=== PATIENT | male | born 1960 | race Caucasian/White ===

== ENCOUNTER 2018-12-28 09:06 | Inpatient (IN) ==
[2018-12-28] MEDS ORDERED: ASPIRIN PO ONE (09:13)
[2018-12-28] MEDS ORDERED: DUONEB (A & A) INH ONE (09:21)
--- NOTE | 2018-12-28 09:44 | Diag Imaging Result Doc PS360 ---
EXAM: CHEST-2 VIEWS - 12/28/2018 HISTORY: sob hemoptysis TECHNIQUE: Chest two views COMPARISON: None. FINDINGS: Heart size is normal. There is infiltrate at the right lower lobe. There is a small right pleural effusion. There is fullness at the right hilum. Left lung appears clear. IMPRESSION: Right lower lobe infiltrate suspicious for pneumonia. Small right pleural effusion. Right hilar fullness which may relate to enlarged lymph nodes or other mass lesion. Correlation with CT thorax, or follow-up radiographs after treatment, is recommended. Electronically signed by Phill Yang 12/28/2018 9:42 AM
[2018-12-28 09:50] LABS: BASO# 0.02 X1000 (0.0-0.2); BASO% 0.2 % (0.0-0.8); EOS% 1.2 % (0.0-10.0); HEMOGLOBIN 15.5 g/dL (14.0-18.0); IMM GRAN# 0.01 X1000 (0.0-0.04); IMM GRAN% 0.1 % (0.0-0.5); LYMPH# 0.92 X1000 (1.2-3.4); LYMPH% 10.7 % (20.5-51.1); MCH 30.2 PG (27-31); MCHC 32.3 g/dL (33-37); MCV 93.6 FL (81-99); MONO# 1.19 X1000 (0.11-0.59); MONO% 13.8 % (1.7-9.3); MPV 9.8 FL (7.4-10.4); NEUT# 6.37 X1000 (1.4-6.5); PLT 232 X1000 (130-400); RBC 5.13 XMIL (4.7-6.1); RDW 13.8 % (11.5-14.5); WBC 8.61 X1000 (4.8-10.8)
[2018-12-28 10:09] LABS: INR 1.04; PROTIME 14.1 Seconds (11.0-16.0); PTT 32.6 Seconds (22.3-41.8)
--- NOTE | 2018-12-28 10:09 | PROVIDER DOCUMENTATION ---
This chart was entered by Brunilda Buitrago Scribe, acting as scribe for Melissa Thorne MD. HPI-Respiratory General - General Chief Complaint: Shortness of Breath Stated Complaint: SOB/COUGHING UP BLOOD Time Seen by Provider: 12/28/18 09:16 Source: patient Allergies/Adverse Reactions: Patient Allergies Allergy/AdvReac Type Severity Reaction Status Date / Time No Known Allergies Allergy Verified 12/28/18 09:20 Home Medications: Home Medication List Medication Instructions Recorded Confirmed Last Taken Type NK [No Home Medications] 12/28/18 12/28/18 Unknown History - History of Present Illness-Resp Nature of Presenting Problem: 58 yowm presents to the ed with c/o sob, productive cough, chills with abd and back pain. pt sts sx began 1 month prior but worsen 4 days ago. pt sts quit smoking 3 weeks ago. pt on exam is nontoxic in appearance and can speak in complete sentences. Quality of Pain: reports: none Severity in ED: reports: mild Onset/Duration: reports: other (1 month) Timing: reports: intermittent, getting worse Cough Quality/Degree: reports: mild, productive cough, blood streaked sputum Episode Frequency: occasional episodes Current Respiratory Medication Therapy: Initiated see nurses note Associated Symptoms: reports: cough, fever/chills (chills but unsure of fever), shortness of breath, wheezing. denies: chest pain/soreness Similar Symptoms Previously?: Yes Recently seen or treated by another doctor?: No Review of Systems - Adult - REVIEW OF SYSTEMS - ADULT Constitutional: reports: see HPI, chills Eyes: reports: no symptoms reported Ears, Nose, Mouth & Throat: reports: no symptoms reported Cardiovascular: reports: see HPI, edema. denies: chest pain, palpitations Respiratory: reports: see HPI, cough, dyspnea on exertion, shortness of breath, wheezing Gastrointestinal: reports: see HPI, abdominal pain. denies: diarrhea, nausea, vomiting Genitourinary: reports: no symptoms reported Musculoskeletal: reports: see HPI, back pain. denies: neck pain Integumentary: reports: no symptoms reported Neurological: denies: dizziness/vertigo, headache/migraines Psychiatric: reports: no symptoms reported Endocrine: reports: no symptoms reported Hematologic/Lymphatic: reports: no symptoms reported Allergic/Immunologic: reports: no symptoms reported All Other Systems: Reviewed and Negative Past History - Adult - PAST MEDICAL HISTORY-ADULT Review of Records: reports: Nursing Assessment Review, Medications Reviewed, Social history reviewed & non-contributory. Major Childhood Illnesses: reports: denies history Cardiovascular: reports: denies history Respiratory: reports: denies history Gastrointestinal: reports: pancreatitis Genitourinary: reports: denies history Musculoskeletal: reports: denies history Hand Dominance: Right Handed Neurological: reports: denies history Psychiatric: reports: denies history Endocrine/Immune: reports: denies history Other Conditions: reports: denies history - PRIOR SURGERIES/PROCEDURES Surgical/Procedure History: reports: reviewed, not pertinent - IMMUNIZATION STATUS Childhood Immunizations: See Nurse Assessment Flu Vaccine: See Nurse Assessment - FAMILY HISTORY Family History: reviewed, not pertinent - SOCIAL HISTORY Smoking: quit less than 1 year Substance Use: denies Alcohol Use Frequency: never Living Situation: family Physical Exam-General - PHYSICAL EXAM-ADULT Initial Vital Signs Reviewed: Yes - CONSTITUTIONAL General Appearance: appears well, alert, mild distress, obese - EYES Eyes: PERRL/EOMI, pink conjunctivae - HEAD, EARS, NOSE, MOUTH & THROAT HENMT: moist mucous membranes, normal ENT inspection - NECK Neck: full range of motion, supple, normal inspection - RESPIRATORY Respiratory: chest non-tender, decreased breath sounds, wheezing - CARDIOVASCULAR Cardiovascular: normal peripheral pulses, regular rate, rhythm - CHEST (BREASTS) Chest/Breast: deferred - GASTROINTESTINAL (ABDOMEN) Abdominal Exam: normal bowel sounds, non tender, soft - GENITOURINARY Male Genitalia: deferred Rectal Exam: deferred Hemoccult Exam: deferred - LYMPHATIC Lymphatic: no adenopathy - MUSCULOSKELETAL Back Exam: normal inspection, no CVA tenderness, no vertebral tenderness Extremity: normal range of motion, normal gait, normal capillary refill, pelvis stable, swelling (1+ BLE edema) - SKIN Integumentary: normal color, normal turgor, warm/dry - NEUROLOGIC Neurologic: grossly normal - PSYCHIATRIC Psych/Mental Status: normal mood/affect, normal thought content, normal thought process, oriented x 3 Progress - PLAN OF CARE/RESULTS Result Diagrams: 12/28/18 09:42 12/28/18 09:42 - REASSESSMENT Reassessment #1 Time Reassessed: 13:03 (dr hero lemons) Status: unchanged Reassessment #2 Time Reassessed: 14:48 (cough has became worse ) Status: worsening Reassessment #3 Time Reassessed: 14:59 (pt HR 186 and now pt is new onset afib with rvr. er dr and dr blount hospitalist is at bedside) Status: worsening Reassessment #4 Time Reassessed: 16:01 Status: improving (on cardixem drip, HR well controlled.) - EKG 1 Time of EKG reading by physician:: 09:16 EKG Read and Signed by:: Melissa Thorne EKG Interpretation (*Must complete 3 of following elements*): Normal Rate: 75 Rhythm: nsr [place]: normal QRS: normal MT Interval: normal ST Wave: normal 2 Time of EKG reading by physician:: 14:58 EKG Read and Signed by:: Melissa Thorne EKG Interpretation (*Must complete 3 of following elements*): Abnormal Rate: 149 Rhythm: new onset afib with rvr w/ premature ventricular conducted complexes [place]: normal QRS: normal MT Interval: normal ST Wave: normal Prior EKG Comparison: changes noted (new onset afib with rvr) - XRAY 1 XRAY: Bilateral XRAY Study: Chest Impression: See EMR Report (EXAM: CHEST-2 VIEWS - 12/28/2018 HISTORY: sob hemoptysis TECHNIQUE: Chest two views COMPARISON: None. FINDINGS: Heart size is normal. There is infiltrate at the right lower lobe. There is a small right pleural effusion. There is fullness at the right hilum. Left lung appears clear. IMPRESSION: Right lower lobe infiltrate suspicious for pneumonia. Small right pleural effusion. Right hilar fullness which may relate to enlarged lymph nodes or other mass lesion. Correlation with CT thorax, or follow-up radiographs after treatment, is recommended. Electronically signed by Phill Yang 12/28/2018 9:42 AM 12/28/18 0942 Interpreting Physician: Phill Yang MD Dictated Date/Time: 12/28/18 0937 cc: Melissa Thorne MD; Wojciech Ann MD) - CT/MRI 1 CT Study: Angiogram Impression: See EMR Report (EXAM: CT ANGIOGRM PULMONARY ARTERIES 12/28/2018 HISTORY: SOB, ELEVATED D-DIMER TECHNIQUE: This exam was performed using automated exposure control, adjustment of mA or kV according to patient size, and/or use of iterative reconstruction technique. COMMENT: 3-D MIPS were performed. There are no previous studies available for comparison. There is a fairly large right pleural fluid collection. There are no pulmonary arterial filling defects. The aorta is not distended and there is no evidence of dissection. There is a fairly hilar mass in the right lower lobe with obstructi on of the right lower lobe bronchi and attenuation of the middle lobe bronchus. There is some narrowing of the distal bronchus intermedius which appears to be encased in tumor. There is a small amount of pleural fluid on the left. There is obstruction of the left inferior pulmonary vein. The right main pulmonary artery is encased in tumor. There is aorticopulmonary window and right paratracheal ad enopathy. There is apparent periaortic adenopathy in the infrarenal region on the left and there is some retrocrural adenopathy particularly on the right. The adrenal glands are not enlarged. There is a celiac node on the left measuring over 18 mm. There are granulomata in the spleen. There are degenerative changes in the thoracic spine particularly caudally. There are old fractures of the left third, fourth, and fifth ribs. No evidence of acute bony abnormality is present. There is also consolidation of the costophrenic sulcus region of the right lower lobe laterally. There are patchy groundglass opacities throughout the right lower lobe. There is fluid in the right major fissure. 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 Pleural effusions, possibly malignant on the right. Mediastinal and retroperitoneal adenopathy as described above. No evidence of pulmonary emboli. Electronically signed by Taco Garsia 12/28/2018 12:52 PM 12/28/18 1252 Interpreting Physician: Taco Garsia MD Dictated Date/Time: 12/28/18 1244 cc: Melissa Thorne MD; Wojciech Ann MD) - CONSULTS/PCP/HOSPITALIST Notification #1 *Consult/PCP/Hospitalist*: hospiatlsit dr blount Time Discussed: 13:24 (pt will be admitted and then transfered to [facility] for pulmonology) Consult Disposition: Admit Departure - Departure Date of Disposition Decision: 12/28/18 Time of Disposition Decision: 13:34 DIAGNOSIS: Pleural effusion, Lung mass, Mediastinal lymphadenopathy, LAD (lymphadenopathy), retroperitoneal, Atrial fibrillation with RVR Dyspnea Qualifiers: Dyspnea type: unspecified Qualified Code(s): R06.00 - Dyspnea, unspecified Disposition: ADMITTED INPATIENT 09 Certified Medical Emergency: Emergent Condition: Stable - Critical Care Note This patient required my direct & personal management of CC.: Yes Total Time (mins): 38 Critical Care Statement: This patient required my direct personal management to treat or rule out processes, the absence of which, could potentiallly result in sudden, clinically significant life or limb threatening deterioration. Attestation - Physician/ REKHA Attestation Patient care was provided by Advanced Practice Provider:: No The physician spent face to face time with patient:: Yes Advanced Practice Provider documentation review:: Supervising physician onsite and consulted in the evaluation and care of this patient. The physician did have a face to face encounter with the patient. This chart was documented by the indicated scribe, (Brunilda Buitrago Scribe) and accurately reflects the services I performed and decisions made by me, Melissa Thorne MD, as attested by the provider's signature.
[2018-12-28 10:15] LABS: AGAP 9; ALBUMIN 3.9 g/dL (3.5-5.0); ALKALINE PHOSPHATASE 82 U/L (32-122); BUN 10 mg/dL (8-22); CALCIUM 9.3 mg/dL (8.8-10.2); CHLORIDE 98 mmol/L (98-107); CK PROFILE 70 U/L (24-204); COSMO 269; CREATININE 0.7 mg/dL (0.7-1.2); ESTIMATED GFR > 60; GLUCOSE 94 mg/dL (70-104); GOT 16 U/L (10-34); GPT 16 U/L (10-44); POTASSIUM 4.4 mmol/L (3.5-5.1); SODIUM 135 mmol/L (136-145); TCO2 29 mmol/L (25-35); TOTAL PROTEIN 6.7 g/dL (6.3-8.3)
[2018-12-28] MEDS ORDERED: ZITHROMAX 500 MG/NS 500 MG/250 ML IVPB IV ONE (10:28)
[2018-12-28] MEDS ORDERED: ROCEPHIN 1 GM in NS 50 ML IV ONE (10:28)
--- NOTE | 2018-12-28 11:24 | EKG Report ---
Test Performed on : 12/28/2018 09:16:40 AM Test Reason : sob chest tightness Blood Pressure : / mmHG Vent. Rate : 075 BPM Atrial Rate : 075 BPM P-R Int : 168 ms QRS Dur : 082 ms QT Int : 378 ms P-R-T Axes : 062 035 040 degrees QTc Int : 422 ms Normal sinus rhythm. Normal ECG No previous ECGs available Unconfirmed Result
--- NOTE | 2018-12-28 12:55 | Diag Imaging Result Doc PS360 ---
EXAM: CT ANGIOGRM PULMONARY ARTERIES 12/28/2018 HISTORY: SOB, ELEVATED D-DIMER TECHNIQUE: This exam was performed using automated exposure control, adjustment of mA or kV according to patient size, and/or use of iterative reconstruction technique. COMMENT: 3-D MIPS were performed. There are no previous studies available for comparison. There is a fairly large right pleural fluid collection. There are no pulmonary arterial filling defects. The aorta is not distended and there is no evidence of dissection. There is a fairly hilar mass in the right lower lobe with obstruction of the right lower lobe bronchi and attenuation of the middle lobe bronchus. There is some narrowing of the distal bronchus intermedius which appears to be encased in tumor. There is a small amount of pleural fluid on the left. There is obstruction of the left inferior pulmonary vein. The right main pulmonary artery is encased in tumor. There is aorticopulmonary window and right paratracheal adenopathy. There is apparent periaortic adenopathy in the infrarenal region on the left and there is some retrocrural adenopathy particularly on the right. The adrenal glands are not enlarged. There is a celiac node on the left measuring over 18 mm. There are granulomata in the spleen. There are degenerative changes in the thoracic spine particularly caudally. There are old fractures of the left third, fourth, and fifth ribs. No evidence of acute bony abnormality is present. There is also consolidation of the costophrenic sulcus region of the right lower lobe laterally. There are patchy groundglass opacities throughout the right lower lobe. There is fluid in the right major fissure. 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 Pleural effusions, possibly malignant on the right. Mediastinal and retroperitoneal adenopathy as described above. No evidence of pulmonary emboli. Electronically signed by Taco Garsia 12/28/2018 12:52 PM
[2018-12-28] MEDS ORDERED: CARDIZEM ONE (14:57)
[2018-12-28] MEDS ORDERED: NS 1,000 ML ONE (14:57)
[2018-12-28] MEDS ORDERED: CARDIZEM IV ONE ×3 (15:01→15:20)
[2018-12-28] MEDS ORDERED: NS 1,000 ML IV ONE (15:05)
[2018-12-28] MEDS ORDERED: ZOFRAN IV PRN (15:14)
[2018-12-28] MEDS ORDERED: CARDIZEM 125 MG/D5W 125 MG/125 ML IVPB IV SCH (15:30)
--- NOTE | 2018-12-28 16:14 | EKG Report ---
Test Performed on : 12/28/2018 3:09:38 PM Test Reason : heart rhythm change Blood Pressure : / mmHG Vent. Rate : 111 BPM Atrial Rate : 113 BPM P-R Int : 000 ms QRS Dur : 078 ms QT Int : 320 ms P-R-T Axes : 000 034 043 degrees QTc Int : 435 ms Atrial fibrillation. with rapid ventricular response. with premature ventricular or aberrantly conduc noel complexes. Abnormal ECG When compared with ECG of 28-DEC-2018 14:58, (Unconfirmed) No significant change was found Unconfirmed Result
--- NOTE | 2018-12-28 16:14 | EKG Report ---
Test Performed on : 12/28/2018 2:58:42 PM Test Reason : tachycardia Blood Pressure : / mmHG Vent. Rate : 149 BPM Atrial Rate : 149 BPM P-R Int : 000 ms QRS Dur : 070 ms QT Int : 314 ms P-R-T Axes : 000 036 040 degrees QTc Int : 494 ms Atrial fibrillation. with rapid ventricular response. with premature ventricular or aberrantly conduc noel complexes. Abnormal ECG When compared with ECG of 28-DEC-2018 09:16, (Unconfirmed) Atrial fibrillation. has replaced Sinus rhythm. Vent. rate has increased BY 74 BPM Unconfirmed Result
[2018-12-28] MEDS ORDERED: DUONEB (A & A) INH PRN (16:44)
[2018-12-28] MEDS: ZOSYN 3.375 GM in NS 50 ML IV SCH ×2 (17:30→23:00)
--- NOTE | 2018-12-28 18:43 | ECHO REPORT ---
ORDER DATE: 12/28/2018 REQUESTING PHYSICIAN: Hospitalist. INDICATION: Atrial fibrillation with rapid response, evaluate LV function. M-MODE MEASUREMENTS: Left ventricle end diastole: 3.9. Left ventricle end systole: 2.8. Posterior wall: 1.5. Interventricular septum: 1.4. Left atrium: 4.5. SUMMARY OF 2-DIMENSIONAL IMAGIN. The study is very limited. The patient appears to be in atrial fibrillation with rapid response. There is no pericardial effusion. 2. Left ventricular function is probably normal, estimated roughly at 60% to 65%. 3. The aortic valve is probably normal. 4. The mitral valve does not show any evidence of abnormality. 5. The pulmonic valve is visualized suboptimally. 6. The tricuspid valve is also suboptimally visualized. In summary, this echocardiographic study is limited. The global ejection fraction appears to be normal. I do not see evidence of a pericardial effusion. The aortic and mitral valves appear to be grossly within normal range; however, Doppler study was not carried out to further define the valves. RECOMMENDATIONS: This study needs to be repeated once the patient is stabilized, and get a full echo if one has not been done before. cc: MD Kerry Rey CRNP Gregory S. Cheatham, MD
[2018-12-28] MEDS: DUONEB (A & A) INH SCH ×2 (19:37→23:34)
[2018-12-28] MEDS: ZYVOX PO SCH ×2 (19:57→23:00)
--- NOTE | 2018-12-28 21:05 | HISTORY AND PHYSICAL ---
CHIEF COMPLAINT: Shortness of breath, hemoptysis. HISTORY OF PRESENT ILLNESS: This is a 58-year-old gentleman, with a prior history of pancreatitis, who presents to the emergency room complaining of shortness of breath, a productive cough, intermittent chills with upper abdominal and upper back pain. He states that symptoms began about a month ago. He quit smoking. At that time, he was smoking regularly. He did state his last cigarette was 3 weeks ago. Over the last 2 weeks, he has began to have some blood streaked sputum. Over the last 4 days, symptoms have become progressively worse, prompting his coming to the ER for evaluation. He denies any syncope or dizziness, any chest pain. PAST MEDICAL HISTORY: Pancreatitis. PAST SURGICAL HISTORY: Denies. SOCIAL HISTORY: He smoked a pack a day up until 3 weeks ago. He denies any alcohol or illicit drug use. ALLERGIES: No known drug allergies. HOME MEDICATIONS: None. REVIEW OF SYSTEMS: Discussed with the patient with pertinent positives stated in the HPI. He denied any syncope, dizziness, chest pain, or palpitations, any nausea vomiting, diarrhea, constipation, any black or bloody vomitus or stools, any hematuria, dysuria, frequency, urgency. PHYSICAL EXAMINATION: VITAL SIGNS: Blood pressure is 130/83 with a heart rate of 73, respirations 18, temperature 98 degrees, with room air saturations 96%. EYES: Pupils are equal, round, react to light. EOMs are intact. Sclerae are anicteric. HEAD: Normocephalic, atraumatic. ENT: Mucous membranes are moist. NECK: Supple, with trachea midline. CARDIOVASCULAR: Regular rate and rhythm. S1 and S2 are appreciated. He does have bilateral lower extremity edema from about midthigh down. Calves are nontender bilateral with peripheral pulses palpable x4 extremities. PULMONARY: Breath sounds are decreased throughout, with scattered inspiratory and expiratory wheezes. Chest rises and falls symmetrically with respiration. Chest wall is nontender to palpation. GASTROINTESTINAL: Abdomen is large, soft, nontender, and nondistended, with bowel sounds in all 4 quadrants. GENITOURINARY: He has no CVA nor suprapubic tenderness. NEUROLOGIC: He is alert and oriented x3. SKIN: Warm and dry. LABS: WBC is 8.6 with hemoglobin 15.5, hematocrit 48, and platelets of 232,000. INR is 1.04 with a D-dimer of 1.39. Sodium 135, potassium 4.4, BUN 10, creatinine 0.7 with a glucose of 94, total bilirubin is 1.4. Troponin is 0.037. Blood cultures are pending. Chest x-ray revealed right lower lobe infiltrate suspicious for pneumonia. There is a small right pleural effusion. There is fullness at the hilum. Left lung appears clear. CTA pulmonary arteries revealed probable bronchogenic carcinoma centrally in the right lower lobe. There is a hilar mass in the right lower lobe with obstruction of the right lower lobe bronchi and attenuation of the middle lobe bronchus. There is narrowing of the distal bronchus intermedius which appears to be encased in tumor. There is a small amount of pleural fluid on the left. There is obstruction of the left inferior pulmonary vein. The right main pulmonary artery is encased in tumor. There is aortopulmonary window and right paratracheal adenopathy. There is consolidation in the region of the right lower lobe laterally, with patchy ground-glass opacities throughout the right lower lobe. ASSESSMENT: 1. Right lower lobe pneumonia. 2. Lung mass with mediastinal and retroperitoneal lymphadenopathy. 3. Bilateral pleural effusions. 4. Dyspnea. 5. Hemoptysis. 6. Morbid obesity. 7. Atrial fibrillation with rapid ventricular rate. PLAN: 1. The patient will be admitted to ICU at [facility]. 2. He will be placed on telemetry. 3. Will give supplemental oxygen as needed. 4. He was given Cardizem boluses in the emergency room. Cardizem drip per protocol. 5. Dr. Pereyra has been consulted. 6. hold anticoagulation as the patient has had hemoptysis. 7. echocardiogram, limited at this time due to the patient's heart rate. 8. Blood cultures have been obtained. 9. antibiotics 10. DuoNebs q.4 hours with q.2 hours p.r.n. 11. Pulmonology consult Plan was discussed with Dr. Zaragoza. Further treatments pending hospital course. Dictated by JESSENIA Muñoz for Wm Zaragoza MD cc: JESSENIA Muñoz MD [facility]
[2018-12-28] MEDS ORDERED: TYLENOL PO PRN (21:31)
--- NOTE | 2018-12-29 01:59 | HISTORY AND PHYSICAL ---
ADDENDUM: Patient seen and examined by myself. Full note dictated and discussed with nurse practitioner. Patient notes he has been feeling bad for the past couple weeks. Having some occasional shortness of breath. Notes that yesterday he started coughing up blood. Today it continued and therefore came to the ER. Unfortunately, CT is abnormal and demonstrates which certainly may be a bronchogenic carcinoma. We are going to transfer him to [facility], ask Pulmonology for evaluation. cc: Wm Zaragoza MD
[2018-12-29] MEDS: DUONEB (A & A) INH SCH ×6 (03:14→23:19)
[2018-12-29] MEDS: ZOSYN 3.375 GM in NS 50 ML IV SCH ×4 (04:43→22:41)
[2018-12-29 07:28] LABS: AGAP 17; ALB/GLOB RATIO 1.4; ALBUMIN 3.4 g/dL (3.5-5.0); ALKALINE PHOSPHATASE 78 U/L (32-122); BUN 12 mg/dL (8-22); CALCIUM 9.4 mg/dL (8.8-10.2); CHLORIDE 96 mmol/L (98-107); COSMO 271; CREATININE 0.7 mg/dL (0.7-1.2); ESTIMATED GFR > 60; GLUCOSE 114 mg/dL (70-104); GOT 17 U/L (10-34); GPT 17 U/L (10-44); POTASSIUM 4.4 mmol/L (3.5-5.1); SODIUM 135 mmol/L (136-145); TCO2 22 mmol/L (25-35); TOTAL BILIRUBIN 1.44 mg/dL (0.20-1.00); TOTAL PROTEIN 5.8 g/dL (6.3-8.3)
[2018-12-29] MEDS: CARDIZEM PO SCH ×3 (08:20→20:47)
[2018-12-29] MEDS: ZYVOX PO SCH ×2 (08:20→20:47)
[2018-12-29 08:45] LABS: BASO# 0.02 X1000 (0.0-0.2); BASO% 0.1 % (0.0-0.8); EOS# 0.11 X1000 (0.0-0.7); EOS% 0.8 % (0.0-10.0); HEMATOCRIT 47.3 % (42.0-52.0); HEMOGLOBIN 15.5 g/dL (14.0-18.0); IMM GRAN# 0.03 X1000 (0.0-0.04); IMM GRAN% 0.2 % (0.0-0.5); LYMPH% 8.8 % (20.5-51.1); MCH 30.5 PG (27-31); MCHC 32.8 g/dL (33-37); MCV 93.1 FL (81-99); MONO# 1.45 X1000 (0.11-0.59); MONO% 10.6 % (1.7-9.3); MPV 9.9 FL (7.4-10.4); NEUT# 10.83 X1000 (1.4-6.5); NEUT% 79.5 % (42.2-75.2); PLT 243 X1000 (130-400); RBC 5.08 XMIL (4.7-6.1); RDW 13.8 % (11.5-14.5); WBC 13.64 X1000 (4.8-10.8)
--- NOTE | 2018-12-29 10:01 | PROGRESS NOTE ---
DATE: 12/29/2018 SUBJECTIVE: Patient reports feeling fine. Mild shortness of breath at rest, continues to have productive cough. Denies any fever or chills. OBJECTIVE: Vital Signs: Temperature 98.3 degrees, heart rate 64, respiratory rate 20, blood pressure 143/69, O2 saturation 92% L nasal. General: This is a chronically ill-appearing, 58- year-old male, lying in bed, in no acute distress. Cardiovascular: S1, S2 heard. No murmurs, gallops, or rubs. Regular rate and rhythm. Respiratory: Wheezing all over both pulmonary kebede. Patient is not using any accessory muscles or having work of breathing. Abdomen: Soft, nontender to palpation. Bowel sounds present. No organomegaly. Extremities: No clubbing, cyanosis, or edema. Peripheral pulses present in both legs. Neurological: Patient is alert and oriented x3. Moves 4 extremities. LABORATORY DATA: CBC still pending at time of my dictation. BMP shows creatinine 0.7, sodium 135, total bilirubin 144. CT pulmonary artery probable bronchogenic carcinoma centrally in the right lower lobe with hilar mass in the right lower lobe with obstruction of the right lower lobe bronchi. ASSESSMENT AND PLAN: 1. Postobstructive pneumonia. 2. Lung mass with mediastinal and retroperitoneal lymphadenopathy. 3. Bilateral pleural effusion. 4. Atrial fibrillation with rapid ventricular response. PLAN: The patient was transferred from [facility] because of hemoptysis. Patient has long history of smoking. He just quit a few weeks ago. He was found to have a postobstructive pneumonia with lung mass. He was transferred over here for further evaluation. We have consulted Pulmonary today. Also we have consulted Oncology as well. For COPD exacerbation we will provide DuoNeb every 4 hours as scheduled. We will continue with Zyvox and Zosyn for postobstructive pneumonia. Also patient has developed a new onset atrial fibrillation with rapid ventricular response. In that regard, he has been started on Cardizem drip but that medication has been stopped at 8 p.m. I think that has been treated because of the pneumonia. In any case, to just keep his heart rate controlled, we will start Cardizem 30 mg p.o. q.6 hours. I am going to order an echocardiogram. We are not going to order any anticoagulation because this patient is having already hemoptysis from this lung cancer and his risk of bleeding is high. I think because this patient is off of Cardizem drip, I think this patient can be moved to the [facility]. cc: MD Wm Hurtado MD
--- NOTE | 2018-12-29 10:58 | Diag Imaging Result Doc PS360 ---
EXAM: US ABDOMEN-COMPLETE INDICATION: r/o liver mets COMPARISON: None. FINDINGS: There are several shadowing stones in the gallbladder lumen measuring up to 2.8 cm. There is no evidence of gallbladder wall thickening or pericholecystic fluid. The common bile duct is normal in diameter. Sonographic Roberts's sign was reported to be negative. The liver is mildly prominent measuring up to 19 cm in length. The hepatic echotexture appears normal. No discrete hepatic mass is identified. Portal venous flow is hepatopetal. The pancreas is partially obscured. The visualized portion is unremarkable. The aorta is partially obscured. The visualized portion of the aorta and IVC are grossly unremarkable. The spleen is unremarkable. The kidneys are grossly unremarkable. IMPRESSION: 1.Cholelithiasis. 2.Mildly prominent liver but no discrete hepatic mass is identified sonographically. Electronically signed by Job Adrian 12/29/2018 10:56 AM
--- NOTE | 2018-12-29 19:27 | HEMO/ONC CONSULTATION ---
DATE: 12/29/2018 REASON FOR CONSULTATION: Lung mass. HISTORY OF PRESENT ILLNESS: This is a 58-year-old gentleman with a prior history of pancreatitis who presented to the emergency room on with complaints of shortness of breath, productive cough, intermittent chills and upper abdominal and back pain. His symptoms have been going on for about a month. He has a history of smoking. He has noted some blood in his sputum. For the last 4 days, his symptoms have become worse. He denies syncope, dizziness, chest pain. PAST MEDICAL HISTORY: Pancreatitis. PAST SURGICAL HISTORY: Denies. SOCIAL HISTORY: He smoked 1 pack a day up until approximately a month ago. Denies alcohol or illicit drug use. ALLERGIES: No known drug allergies. HOME MEDICATIONS: He denies. REVIEW OF SYSTEMS: Pertinent positives are as stated in the HPI. PHYSICAL EXAMINATION: Vital Signs: Temperature 100, pulse rate 75, respiratory rate 16, blood pressure 135/92, O2 saturation 94% on nasal cannula at 2 L. General: This is a chronically-ill- appearing male in no acute distress. HEENT: Sclerae are anicteric. PERRLA. Oral mucosa is pink and moist. Cardiovascular: Normal S1, S2. No murmurs, gallops, or rubs noted. Regular rate and rhythm. Respiratory: The patient has upper rhonchi. Wheezing heard throughout. No use of accessory muscles. Normal respiratory effort. Gastrointestinal.: Abdomen is soft, nontender, nondistended, protuberant. Bowel sounds are present. Extremities: No edema noted. Neurological: Awake, alert, and oriented x3. No focal motor deficits noted. LABORATORY: WBCs 13.64, hemoglobin 15.5, hematocrit 47.3, platelet count 343,000. ANC 10.83. Total bilirubin 1.44 and total protein 5.8. CEA is 1.7. Abdominal ultrasound - Impression: (1)Cholelithiasis. (2) Mildly prominent liver, but no discrete hepatic mass is identified. Chest x-ray revealed right lower lobe infiltrate suspicious for pneumonia., small right pleural effusion, fullness at the hilum. Left lung appears clear. CTA: Lung mass with mediastinal and retroperitoneal adenopathy. ASSESSMENT: 1. Right lower lobe pneumonia. 2. Lung mass with mediastinal and retroperitoneal lymphadenopathy. 3. Bilateral small pleural effusions. 4. Dyspnea. 5. Hemoptysis. 6. Morbid obesity. PLAN: Pulmonology has been consulted. Patient will need tissue diagnosis. We will continue to follow along and monitor the patient. We will add an LDH to the labs and follow up accordingly. It is noted that the CEA is 1.7. He will need outpatient PET scan. Dictated by JESSENIA Werner for Nilay Pereyra MD cc: MD Wm Weber MD [facility]
--- NOTE | 2018-12-29 23:11 | PULMONOLOGY PROGRESS NOTE ---
DATE: 12/29/2018 REQUESTING PHYSICIAN: Dr. Conn. REASON FOR CONSULTATION: Hemoptysis and lung mass. HISTORY OF PRESENT ILLNESS: Mr. Bishop is a 58-year-old male with a greater than 40 pack-year history for tobacco (nonsmoker x3 weeks) who developed a cough with intermittent bloody sputum approximately 3 weeks ago. The patient has had ongoing shortness of breath. The patient presented to the emergency room and underwent a pulmonary angiogram, which revealed a right hilar mass extending into the right lower lobe with narrowing of the middle lobe bronchus. There is a small pleural effusion. There is significant paratracheal, aortopulmonary, and abdominal adenopathy. Pulmonary consultation was requested. PAST MEDICAL HISTORY/PROBLEM LIST: 1. History of pancreatitis. 2. Morbid obesity with a BMI greater than 40. 3. Extensive tobacco use with a history of nicotine addiction. 4. History of gastric ulcer disease. SOCIAL HISTORY: Recent discontinuation of tobacco use as per above. Denies significant alcohol use. FAMILY HISTORY: Notable for a Father who from heart disease at the age of 55. Mother at age 53 with a diagnosis of brain cancer. REVIEW OF SYSTEMS: Notable for shortness of breath which has been progressive over the last several months, but more severe over the last few weeks, hemoptysis. PHYSICAL EXAMINATION: General: Reveals an obese, white male, resting comfortably and in no distress. Vital signs: BP 126/59, heart rate 82, respiratory rate 20, oxygen saturation 97% on 3 L per nasal cannula. HEENT: Pupils are equal and reactive. Oropharynx is clear. Neck: Supple. Chest: Reveals diminished breath sounds right base. Cardiac: S1, S2. Abdomen: Obese and soft. Extremities: Reveal trace. LABORATORIES: Sodium 135, potassium 4.4, chloride 98, bicarbonate 29, BUN 10, creatinine 0.7. CEA level is normal at 1.7. White blood count 13.6, hemoglobin 15.5, platelet count 243,000. IMPRESSION: A 58-year-old with 1. Lung mass. 2. Extensive mediastinal and abdominal adenopathy. 3. Acute hypoxemic respiratory failure. 4. Pleural effusions. 5. Morbid obesity. 6. Tobacco use. DISCUSSION: A 58-year-old with problems outlined above. Presentation is most consistent with bronchogenic carcinoma. With his current presentation, which includes obesity, hypoxemic respiratory failure, and suggestion of metastatic disease, he will not likely be a surgical candidate. He does need a tissue diagnosis. PLAN: Anticipate bronchoscopy on Tuesday. cc: MD Wm Mckeon MD
[2018-12-30] MEDS: CARDIZEM PO SCH ×4 (01:35→20:14)
[2018-12-30] MEDS: DUONEB (A & A) INH SCH ×6 (03:33→23:26)
[2018-12-30] MEDS: ZOSYN 3.375 GM in NS 50 ML IV SCH ×4 (04:25→23:57)
[2018-12-30 06:52] LABS: BASO# 0.02 X1000 (0.0-0.2); BASO% 0.2 % (0.0-0.8); EOS# 0.12 X1000 (0.0-0.7); EOS% 0.9 % (0.0-10.0); HEMATOCRIT 44.2 % (42.0-52.0); HEMOGLOBIN 14.5 g/dL (14.0-18.0); IMM GRAN# 0.05 X1000 (0.0-0.04); IMM GRAN% 0.4 % (0.0-0.5); LYMPH# 0.91 X1000 (1.2-3.4); LYMPH% 7.2 % (20.5-51.1); MCH 30.5 PG (27-31); MCHC 32.8 g/dL (33-37); MCV 93.1 FL (81-99); MONO# 1.68 X1000 (0.11-0.59); MONO% 13.2 % (1.7-9.3); MPV 9.9 FL (7.4-10.4); NEUT# 9.93 X1000 (1.4-6.5); NEUT% 78.1 % (42.2-75.2); PLT 236 X1000 (130-400); RBC 4.75 XMIL (4.7-6.1); RDW 13.7 % (11.5-14.5); WBC 12.71 X1000 (4.8-10.8)
[2018-12-30 07:11] LABS: AGAP 14; BUN 13 mg/dL (8-22); CALCIUM 9.5 mg/dL (8.8-10.2); CHLORIDE 96 mmol/L (98-107); COSMO 269; CREATININE 0.8 mg/dL (0.7-1.2); ESTIMATED GFR > 60; GLUCOSE 117 mg/dL (70-104); POTASSIUM 4.2 mmol/L (3.5-5.1); SODIUM 134 mmol/L (136-145); TCO2 24 mmol/L (25-35)
[2018-12-30] MEDS: ZYVOX PO SCH ×2 (08:27→20:14)
--- NOTE | 2018-12-30 09:39 | PROGRESS NOTE ---
DATE: 12/30/2018 SUBJECTIVE: The patient reports feeling fine, is still coughing. Shortness of breath is better. Denies any fever or chills. OBJECTIVE: Vital Signs: Temperature 98.8 degrees, heart rate 65, respiratory rate 20, blood pressure 120/71, O2 saturation 99% on 3 L nasal cannula. General: This is a chronically ill- appearing, 58-year-old male, lying in bed, in no acute distress. Cardiovascular: S1, S2 heard. No murmurs, gallops, or rubs. Regular rate and rhythm. Respiratory: Still wheezing noted all over both pulmonary kebede. Patient not using any accessory muscles or having work of breathing. Abdomen: Soft. Nontender to palpation. Bowel sounds present. No organomegaly. Extremities: No clubbing, cyanosis, or edema. Peripheral pulses present in both legs. Neurological: Patient alert and oriented x3. Moves 4 extremities. LABORATORY DATA: Reviewed. ASSESSMENT: 1. Possible obstructive pneumonia. 2. Lung mass with mediastinal and retroperitoneal lymphadenopathy. 3. Bilateral pleural effusion. 4. Atrial fibrillation with rapid ventricular response. PLAN: The patient clinically is stable. Regarding postobstructive pneumonia, his white cell count is almost back to normal. We will continue with Zosyn and Zyvox. The patient continues to have wheezing, so we will continue with DuoNeb every 4 hours scheduled. Regarding this lung mass, Dr. Floyd has evaluated this patient and thinks that this could be most likely bronchogenic carcinoma. In that regard, plan is to do bronchoscopy on Tuesday. At this point, we will continue with the current management. For atrial fibrillation with rapid ventricular response, I think that was triggered by pneumonia and also the lung cancer as well. At this point, he is in sinus rhythm. His heart rate is controlled at less than 100 almost all the time with Cardizem 30 mg p.o. q.6 hours scheduled. At this point, we will continue with the same management. If his heart rhythm persists to be controlled, I think tomorrow we may switch to Cardizem CD 120 mg p.o. daily. In order to complete the staging for lung cancer and to rule out any dissemination of the lung cancer to the abdomen, we will do abdomen and pelvis CT today, we will see what it shows. In the meantime, we will continue to monitor this patient here closely. cc: MD Wm Hurtado MD MTDD
--- NOTE | 2018-12-30 12:06 | Diag Imaging Result Doc PS360 ---
EXAM: CT ABDOMEN/PELVIS W/WO CONTRAS 12/30/2018 HISTORY: lung cancer, r/o mets in abdomen TECHNIQUE: This exam was performed using automated exposure control, adjustment of mA or kV according to patient size, and/or use of iterative reconstruction technique. COMMENT: There is a small pericardial effusion which is larger than on the previous thoracic study of 12/28/2018. There are no previous abdominal studies. There is a right pleural effusion which was present at the time the previous study. There is increased consolidation of the right lower lobe compared to the previous exam. This is presumably due to worsened postobstructive pneumonia. There is also opacification of portions of the inferior right middle lobe which was not the case previously. There is some platelike atelectasis in the left lower lobe. There are granulomata in the spleen. The aorta is not distended. The mesenteric and renal arteries are patent. There is no evidence of hydronephrosis or nephrolithiasis. The gallbladder is not distended. The liver is unremarkable. The adrenal glands are not enlarged. There is adenopathy present in the right retrocrural space where there is a node measuring up to 16 mm in diameter. The kidneys are without evidence of hydronephrosis or mass. There is no discrete mass in the pancreas but the pancreatic head is somewhat prominent measuring 4.8 x 3.4 cm in the axial plane. There is no evidence of bowel obstruction. Pelvis: There is no evidence of free fluid. There is a 16 mm left external iliac node otherwise there is no evidence of significant adenopathy. There are spondylotic changes in the lumbar spine and there is bilateral spondylolysis at L5. There is no evidence of acute bony disease. IMPRESSION: Worsening postobstructive pneumonia in the right lower and middle lobe. Increasing pericardial effusion. Adenopathy as described. Electronically signed by Taco Garsia 12/30/2018 12:04 PM
--- NOTE | 2018-12-30 15:33 | PULMONOLOGY PROGRESS NOTE ---
DATE: 12/30/2018 SUBJECTIVE: The patient is awake and alert. He denies chest pain. His shortness of breath has diminished. OBJECTIVE: HEENT: Pupils are equal and reactive. Oropharynx is clear. Neck: Supple. Chest: Reveals diminished breath sounds, right base. Cardiac Exam: S1, S2. Abdomen: Obese and soft. Extremities: Without edema. IMPRESSION: A 58-year-old with presumptive lung cancer with a large right hilar mass. Anticipate bronchoscopy on Tuesday. PLAN: 1. Nothing by mouth after midnight tomorrow. 2. Anticipate bronchoscopy as outlined above. cc: MD Wm Mckeon MD
[2018-12-31] MEDS: CARDIZEM PO SCH ×4 (02:29→20:10)
[2018-12-31] MEDS: DUONEB (A & A) INH SCH ×6 (03:39→23:28)
[2018-12-31] MEDS: ZOSYN 3.375 GM in NS 50 ML IV SCH ×3 (05:46→17:11)
[2018-12-31 06:30] LABS: BASO# 0.02 X1000 (0.0-0.2); BASO% 0.2 % (0.0-0.8); EOS# 0.21 X1000 (0.0-0.7); EOS% 1.7 % (0.0-10.0); HEMATOCRIT 45.1 % (42.0-52.0); HEMOGLOBIN 14.6 g/dL (14.0-18.0); IMM GRAN# 0.02 X1000 (0.0-0.04); IMM GRAN% 0.2 % (0.0-0.5); LYMPH# 0.85 X1000 (1.2-3.4); LYMPH% 6.9 % (20.5-51.1); MCH 30.2 PG (27-31); MCHC 32.4 g/dL (33-37); MCV 93.4 FL (81-99); MONO# 1.64 X1000 (0.11-0.59); MONO% 13.4 % (1.7-9.3); MPV 9.8 FL (7.4-10.4); NEUT% 77.6 % (42.2-75.2); PLT 266 X1000 (130-400); RBC 4.83 XMIL (4.7-6.1); RDW 13.7 % (11.5-14.5); WBC 12.24 X1000 (4.8-10.8)
[2018-12-31 06:51] LABS: AGAP 13; BUN 12 mg/dL (8-22); CALCIUM 9.8 mg/dL (8.8-10.2); CHLORIDE 97 mmol/L (98-107); COSMO 272; CREATININE 0.8 mg/dL (0.7-1.2); ESTIMATED GFR > 60; GLUCOSE 139 mg/dL (70-104); POTASSIUM 4.1 mmol/L (3.5-5.1); SODIUM 135 mmol/L (136-145); TCO2 25 mmol/L (25-35)
[2018-12-31] MEDS: ZYVOX PO SCH ×3 (07:57→20:10)
--- NOTE | 2018-12-31 09:54 | PROGRESS NOTE ---
DATE: 12/31/2018 SUBJECTIVE: The patient reports continue having cough, not able to mobilize any secretion. Reports walking in the room and getting mild short of breath. Denies any fever or chills. OBJECTIVE: Vital Signs: Temperature 98.2 degrees, heart rate 70, respiratory rate 20, blood pressure 121/64, O2 saturation 96% on 2 L nasal cannula. General: This is a chronically ill- appearing, 58-year-old male, lying in bed, in no acute distress. Cardiovascular: S1, S2 heard. No murmurs, gallops or rubs. Regular rate and rhythm. Respiratory: Still wheezing all over both pulmonary kebede but better in comparing with yesterday. Patient is not using any accessory muscles or having work of breathing. Abdomen: Soft, nontender to palpation. Bowel sounds present. No organomegaly. Extremities: No clubbing, cyanosis, or edema. Peripheral pulses present in both legs. Neurological: Patient is alert oriented x3. Moves 4 extremities. LABORATORY DATA: Reviewed. ASSESSMENT: 1. Post obstructive pneumonia. 2. Lung mass with mediastinal and retroperitoneal lymphadenopathy. 3. Bilateral pleural effusion. 4. Atrial fibrillation with rapid ventricular response. 5. Worsening pericardial effusion. PLAN: This patient, in brief, has been admitted to the hospital for shortness of breath. We found out in the CT angiogram of the chest this lung mass. Pulmonary has evaluated this patient, and they are planning to do a bronchoscopy for biopsy. Oncology has been involved in his care. For post obstructive pneumonia, the patient is receiving Zosyn and Zyvox and also DuoNeb every 4 hours as scheduled. Clinically, this patient is feeling fine. We have ordered a CT of the abdomen and pelvis for staging of this lung cancer and rule out any dissemination of the cancer to the abdomen, and they informed that postobstructive pneumonia is getting worse as well as worsening pericardial effusion. We have done an echocardiogram limited views, and they did not see any major pericardial effusion. In that regard, I prefer to go ahead and consult Cardiology to see if we need to repeat full echocardiogram or not. We will follow recommendations. Also, we will follow recommendations from Pulmonary. Will continue with current management. cc: MD Wm Hurtado MD
--- NOTE | 2018-12-31 14:27 | CONSULTATION ---
DATE OF CONSULTATION: 12/31/2018 IMPRESSION: 1. Consultation requested regarding pericardial effusion. Echocardiography performed this morning shows tiny amount of pericardial effusion with preserved left ventricular systolic function. 2. Atrial arrhythmias while monitored on telemetry. Patient demonstrates sinus rhythm with frequent supraventricular ectopy and occasional runs of atrial tachycardia. He has also had some irregular supraventricular rhythms that are either atrial fibrillation or multifocal atrial tachycardia. Presently he is in sinus rhythm with frequent supraventricular ectopy. 3. Currently admitted with lung mass and extensive mediastinal and abdominal adenopathy after presenting with acute hypoxic respiratory failure with hemoptysis. Patient also has pleural effusions. 4. Morbid obesity. 5. Chronic cigarette use. 6. Possible obstructive sleep apnea. RECOMMENDATIONS: 1. Given that pericardial effusion is tiny, no further cardiovascular intervention regarding this is needed. 2. Continue to monitor rhythm. If patient manifests sustained symptomatic tachyarrhythmias, use of diltiazem versus amiodarone may be considered. 3. Conservative cardiovascular management overall in light of his likely diagnosis of metastatic malignancy. HISTORY: This 58-year-old white male with past history of morbid obesity, chronic cigarette use, peptic ulcer disease and pancreatitis in the past was admitted originally to [facility] with progressive dyspnea and hemoptysis. He had some intermittent chills along with upper abdominal and upper back discomfort. Symptoms had been progressing over about a month and at the outset of the symptoms he discontinued cigarette use. Evaluation has demonstrated pleural effusion and lung mass involving the right lower lobe. Pleural effusions on the right. Patient also had mediastinal and retroperitoneal adenopathy. There is no evidence of pulmonary emboli. He is being treated for possible pneumonia and as he has further evaluation of his lung mass. He had repeat CT scan yesterday which suggested increasing pericardial effusion. Echocardiography just few days ago demonstrated no significant pericardial effusion. The patient had echocardiography this morning which demonstrated tiny pericardial effusion. PAST MEDICAL HISTORY: 1. Pancreatitis. 2. Obesity. 3. Peptic ulcer disease. ALLERGIES: He has no known drug allergies. MEDICATIONS: Prior to admission as listed. SOCIAL HISTORY: He recently stopped smoking about 3 weeks ago. He denies significant alcohol use. FAMILY HISTORY: Positive for coronary disease. REVIEW OF SYSTEMS: Pulmonary: Noteworthy for dyspnea and hemoptysis. Gastrointestinal: Noncontributory beyond history of present illness. Constitutional: Noncontributory beyond history of present illness. Remainder review of systems negative/noncontributory beyond history present illness with 14 total systems reviewed. PHYSICAL EXAMINATION: General: This is a obese middle-aged white male in no distress on supplemental oxygen per nasal cannula. Vital signs: Blood pressure 132/73, heart rate 72, oxygen saturation 97% on nasal cannula oxygen at 2 L/minute. HEENT: Extraocular movements appear intact. Mucous membranes moist. Neck: Supple without jugular venous distention. There are no carotid bruits. Chest: Auscultation of the chest reveals diminished breath sounds in right base. Cardiac: Reveals a regular rate and rhythm without appreciable murmur or gallop. Abdomen: Soft. Bowel sounds are normal. Extremities: Without edema. Neurologic: Reveals him to be alert and fully oriented. Speech is fluent. He moves all 4 extremities equally well. DIAGNOSTIC DATA: Most recent 12 lead EKG obtained 12/29/2018 demonstrates normal sinus rhythm is within normal limits. Review of telemetry demonstrates episodes of brief atrial tachycardia as well as frequent supraventricular ectopy. LABORATORY DATA: Includes a white blood cell count of 12.24, hematocrit 45.1, hemoglobin 14.6, platelet count 266,000. Sodium 135, potassium 4.1, chloride 97, carbon dioxide 25, BUN 12, creatinine 0.8, glucose 139. cc: MD Wm Berman MD
--- NOTE | 2018-12-31 16:13 | EKG Report ---
Test Performed on : 12/31/2018 12:24:58 PM Test Reason : elevated heart rate Blood Pressure : / mmHG Vent. Rate : 109 BPM Atrial Rate : 147 BPM P-R Int : 188 ms QRS Dur : 082 ms QT Int : 326 ms P-R-T Axes : 069 042 032 degrees QTc Int : 439 ms sinus rhythm alternating with atrial fibrillation Abnormal ECG When compared with ECG of 28-DEC-2018 15:09, (Unconfirmed) Sinus rhythm. alternates with Atrial fibrillation. Confirmed by Ambrocio PEARSON, Hari Pizano ([id number]) on 12/31/2018 7:38:37 PM
--- NOTE | 2018-12-31 17:53 | PULMONOLOGY PROGRESS NOTE ---
DATE: 12/31/2018 SUBJECTIVE: The patient is awake and alert. He is without new complaints. OBJECTIVE: Vital Signs: Maximum temperature in the last 24 hours 100.6 degrees, BP 120/61, heart rate 68, respiratory rate 20, oxygen saturation 99% on 2 L per nasal cannula. HEENT: Pupils are equal and reactive. Oropharynx appears clear. Neck is supple. Chest reveals occasional rhonchi bilaterally with significant decreased breath sounds at the right base. Cardiac: S1, S2. Abdomen is obese and soft. Extremities reveal trace to 1+ peripheral edema. LABORATORIES: White blood count 12.24, hemoglobin 14.6, platelet count 266,000. Sodium 135, potassium 4.1, chloride 97, bicarbonate 25, BUN 12, creatinine 0.8. IMPRESSION: A 58-year-old with: 1. Large right hilar mass. 2. Extensive mediastinal adenopathy. 3. Acute hypoxemic respiratory failure. 4. Pleural effusions. PLAN: 1. The patient is scheduled for bronchoscopy tomorrow, pending bronchoscopy lab availability. 2. All questions were discussed and answered. cc: MD Wm Mckeon MD
[2019-01-01] MEDS: ZOSYN 3.375 GM in NS 50 ML IV SCH ×4 (00:56→18:27)
[2019-01-01] MEDS: CARDIZEM PO SCH ×5 (00:57→19:57)
[2019-01-01] MEDS: DUONEB (A & A) INH SCH ×6 (03:33→23:04)
[2019-01-01 06:04] LABS: BASO# 0.03 X1000 (0.0-0.2); BASO% 0.3 % (0.0-0.8); EOS# 0.24 X1000 (0.0-0.7); EOS% 2.2 % (0.0-10.0); HEMOGLOBIN 14.2 g/dL (14.0-18.0); IMM GRAN# 0.02 X1000 (0.0-0.04); IMM GRAN% 0.2 % (0.0-0.5); LYMPH# 0.96 X1000 (1.2-3.4); LYMPH% 8.9 % (20.5-51.1); MCH 30.3 PG (27-31); MCHC 32.3 g/dL (33-37); MCV 93.8 FL (81-99); MONO# 1.15 X1000 (0.11-0.59); MONO% 10.7 % (1.7-9.3); MPV 9.6 FL (7.4-10.4); NEUT# 8.35 X1000 (1.4-6.5); NEUT% 77.7 % (42.2-75.2); PLT 263 X1000 (130-400); RBC 4.69 XMIL (4.7-6.1); RDW 13.8 % (11.5-14.5); WBC 10.75 X1000 (4.8-10.8)
[2019-01-01 06:23] LABS: AGAP 11; BUN 14 mg/dL (8-22); CALCIUM 10.2 mg/dL (8.8-10.2); CHLORIDE 96 mmol/L (98-107); COSMO 267; CREATININE 0.8 mg/dL (0.7-1.2); ESTIMATED GFR > 60; GLUCOSE 105 mg/dL (70-104); POTASSIUM 4.5 mmol/L (3.5-5.1); SODIUM 133 mmol/L (136-145); TCO2 26 mmol/L (25-35)
[2019-01-01] MEDS ORDERED: XYLOCAINE 2% VISCOUS ONE (07:27)
[2019-01-01] MEDS ORDERED: EPINEPHRINE ONE (07:27)
[2019-01-01] MEDS ORDERED: XYLOCAINE 2% ONE (07:27)
[2019-01-01] MEDS ORDERED: SODIUM CHLORIDE 0.9% 20 ML ONE (07:27)
[2019-01-01] MEDS ORDERED: XYLOCAINE-MPF 2% ONE ×2 (08:23→08:43)
[2019-01-01] MEDS ORDERED: DIPRIVAN 1% ONE (08:24)
[2019-01-01] MEDS ORDERED: FENTANYL ONE (08:32)
[2019-01-01] MEDS ORDERED: VERSED ONE (08:41)
--- NOTE | 2019-01-01 08:44 | ECHO REPORT ---
ORDER DATE: 12/31/2018 SUMMARY: 1. Technically difficult study. Study is a limited study to assess for pericardial effusion. 2. Aortic valve is without evidence of structural abnormality. Doppler not performed. Mitral valve and tricuspid valves are without gross structural abnormality. Pulmonic valve not seen. The aortic root is grossly normal in size. 3. Normal left ventricular dimensions suggested on 2-dimensional images. Estimated left ventricular ejection fraction appears to be at least 55%. No obvious wall motion abnormality can be appreciated. Left atrium, right atrium, and right ventricle are grossly normal in size. 4. Very small pericardial effusion is demonstrated. During systole, pericardial separation measures 4 mm at the apex and 3 mm anteriorly. There is no evidence of hemodynamic significance by echocardiography. 5. Inferior vena cava not well demonstrated. cc: MD Wm Berman MD
--- NOTE | 2019-01-01 10:11 | OPERATIVE NOTE ---
PROCEDURE DATE: 01/01/2019 PROCEDURE PERFORMED: Bronchoscopy with washings and endobronchial biopsies. CLINICAL INDICATIONS: A 58-year-old with large right hilar mass and hemoptysis. DESCRIPTION OF PROCEDURE: The patient was identified in the procedure room prior to the procedure. All of his questions were answered. A time-out was performed prior to the procedure. All agreed with the procedure and the patient identifiers. When topical anesthesia and sedation were achieved, bronchoscope was advanced through the right nostril to the level of the vocal cords. There was mild leukoplakia noted on the midportion of the left vocal cord. Video image was obtained. The bronchoscope was advanced through the vocal cords into the trachea. No tracheal lesions were identified. Airways to the left mainstem, left upper lobe lingula and left lower lobe were patent without lesions. Airways to the right upper lobe were patent without lesions. On the medial portion of the bronchus intermedius on entrance into the right middle lobe. There was increased edema of the mucosa with probable tumor involvement. The bronchoscope could not be advanced into the right middle lobe due to airway narrowing and edematous mucosa. The bronchoscope was directed to the right lower lobe. There was increase in secretions and edema, and airway segments to the right lower lobe could not be visualized. Epinephrine was instilled into the basilar segment entrance of the right lower lobe. A biopsy forceps was advanced into this area and immediately met obstruction. Multiple biopsies were taken in a blind fashion as the forceps hit obstruction on entrance into the right lower lobe. Minor bleeding was associated with the biopsies. The patient did have upper airway obstruction with sedation and a jaw advancement maneuver was required for the majority of the case to prevent oxygen desaturation. Otherwise, patient tolerated the procedure without difficulty. IMPRESSION: 1. Abnormal entrance with narrowing and inability to evaluate right middle lobe as per above. 2. Edema with no airway identified to the right lower lobe. Multiple transbronchials performed as outlined above. cc: MD Wm Mckeon MD
[2019-01-01] MEDS: ZYVOX PO SCH ×2 (11:22→20:00)
--- NOTE | 2019-01-01 11:56 | PROGRESS NOTE ---
DATE: 01/01/2019 SUBJECTIVE: The patient has no major complaints. OBJECTIVE: Blood pressure is 128/61, heart rate 66, respiratory rate of 9, temperature 98 degrees, 98% on 2 L. Cardiovascular: Regular rate and rhythm. Pulmonary: Bilateral breath sounds clear to auscultation. GI: Soft, nontender, nondistended. Bowel sounds were positive. Laboratory Data: White count is 10, hemoglobin and hematocrit 14 and 44, platelets 263,000. Basic was normal. PROBLEM LIST: 1. Postobstructive pneumonia. We will continue antibiotics. He is currently on Zyvox and Zosyn, if I remember correctly, and those have been day 5 on those, at least since they were started. May consider them day 4 since they were started late on the . 2. Atrial fibrillation with rapid ventricular response. He is on Cardizem. I think he may be on oral Cardizem. Seems to be controlled so maybe probably start the intravenous Cardizem. Seems to be doing okay. 3. Lung mass with concern over cancer. His bronchoscopy was done today per Dr. Floyd. It does look like multiple biopsies were done so waiting on tissue to decide about treatment. 4. Disposition. Kind of waiting on biopsy results so he may be here another couple days or per the other folks on board, so we will continue to monitor closely. I am not sure if he is needs to be anticoagulated but obviously, we are going to hold all of that while he has recently gotten surgery. We are just waiting on multiple specimens and we will continue to follow. cc: MD Wm Salmeron MD
--- NOTE | 2019-01-01 12:59 | HEMO/ONC PROGRESS NOTE ---
DATE: 01/01/2019 SUBJECTIVE: The patient is back in his room status post bronchoscopy this morning. His is at bedside. He remains NPO. His procedure went well and he is waking up as expected. OBJECTIVE: Vital Signs: Temperature 98.2 degrees, pulse rate 65, respiratory rate 17, blood pressure 129/71, O2 saturation 95% on nasal cannula at 3 L. He is in 0/10 pain. Physical Examination: General: The patient is in no acute distress. HEENT: Sclerae are anicteric. PERRLA. Oral mucosa is moist. Cardiovascular: Normal S1, S2. Heart rate and rhythm regular. Respiratory: Bilateral breath sounds clear to auscultation. Normal respiratory effort. Gastrointestinal: Abdomen is soft, nontender, nondistended. Bowel sounds were positive. Extremities: No lower extremity edema noted. Laboratory: WBCs 10.75, hemoglobin 14.2, hematocrit 44.0, platelet count 263,000. LDH 171. ASSESSMENT: 1. Postobstructive pneumonia. 2. Right lung mass with mediastinal and retroperitoneal lymphadenopathy. 3. Bilateral small pleural effusions. 4. Dyspnea. 5. Hemoptysis. 6. Morbid obesity. PLAN: The patient had a bronchoscopy today with multiple biopsies. We will continue to wait on the results. The patient tolerated his procedure well. We will continue to follow up on patient's labs and await tissue diagnosis. Unfortunately he is uninsured. We will not be able to get a PET scan. Plan for a bone scan. We will continue to follow. Dictated by JESSENIA Werner for Nilay Pereyra MD cc: MD Wm Weber MD MTDD
[2019-01-02] MEDS: ZOSYN 3.375 GM in NS 50 ML IV SCH ×5 (01:20→23:19)
[2019-01-02] MEDS: CARDIZEM PO SCH ×5 (01:20→23:19)
[2019-01-02] MEDS: DUONEB (A & A) INH SCH ×6 (03:07→23:06)
[2019-01-02 05:29] LABS: BASO# 0.03 X1000 (0.0-0.2); BASO% 0.3 % (0.0-0.8); HEMATOCRIT 41.6 % (42.0-52.0); HEMOGLOBIN 13.6 g/dL (14.0-18.0); IMM GRAN# 0.02 X1000 (0.0-0.04); IMM GRAN% 0.2 % (0.0-0.5); LYMPH# 0.95 X1000 (1.2-3.4); LYMPH% 9.5 % (20.5-51.1); MCH 30.6 PG (27-31); MCHC 32.7 g/dL (33-37); MCV 93.7 FL (81-99); MPV 9.6 FL (7.4-10.4); NEUT# 7.42 X1000 (1.4-6.5); PLT 295 X1000 (130-400); RBC 4.44 XMIL (4.7-6.1); RDW 13.7 % (11.5-14.5); WBC 10.02 X1000 (4.8-10.8)
[2019-01-02 05:46] LABS: AGAP 10; BUN 14 mg/dL (8-22); CALCIUM 9.9 mg/dL (8.8-10.2); CHLORIDE 95 mmol/L (98-107); COSMO 264; CREATININE 0.8 mg/dL (0.7-1.2); ESTIMATED GFR > 60; GLUCOSE 118 mg/dL (70-104); POTASSIUM 4.1 mmol/L (3.5-5.1); SODIUM 131 mmol/L (136-145); TCO2 26 mmol/L (25-35)
[2019-01-02] MEDS: ZYVOX PO SCH ×2 (08:29→20:11)
--- NOTE | 2019-01-02 12:54 | Diag Imaging Result Doc PS360 ---
EXAM: BONE SCAN, TOTAL BODY 01/01/2019 HISTORY: evaluate for mets TECHNIQUE: Patient was injected with 29.2 mCi of technetium 99m MDP and the entire body was scanned in the anterior and posterior projection. COMMENT: There are portions of the upper extremities which are not included on the study due to the patient's large body habitus. There is some increased activity posteriorly in the upper cervical spine on the right which may be due to facet arthropathy. There is some costovertebral uptake particularly on the right side on the eighth and ninth ribs. There is costovertebral arthropathy demonstrated on the CT of the chest dated 12/28/2018 at multiple levels. There is some increased activity in the right ankle which may be degenerative or posttraumatic. No foci of abnormal uptake are present which are particularly suggestive of metastatic disease. There are no previous studies available for comparison. IMPRESSION: No definite evidence of metastatic disease. Electronically signed by Taco Garsia 01/02/2019 12:51 PM
--- NOTE | 2019-01-02 18:32 | PROGRESS NOTE ---
DATE: 01/02/2019 SUBJECTIVE: Patient has no major complaints. OBJECTIVE: Blood pressure is 147/62, heart rate of 97, respiratory rate 23, temperature 98.5 degrees, 94% on room air.Cardiovascular: Regular rate and rhythm. Pulmonary: Bilateral breath sounds. Clear to auscultation. GI: Was soft, nontender, nondistended. Bowel sounds are positive. Extremities: No clubbing or cyanosis. Lymphatic: No peripheral edema. Neurological: Nonfocal. LABORATORY DATA: Was unremarkable. White count is 10, hemoglobin and hematocrit 13, 41, platelets 295,000. Sodium 131. cc: Mac Meek MD
--- NOTE | 2019-01-02 18:43 | PROGRESS NOTE ---
DATE: 01/02/2019 SUBJECTIVE: Patient denies chest discomfort or shortness of breath on room air. OBJECTIVE: Blood pressure 147/62, heart rate 97, oxygen saturation 94% on room air. There is no significant jugular venous distention. Auscultation of the chest reveals significant diminished breath sounds in the right base. Few rhonchi appreciated. Cardiac: Reveals a regular rate and rhythm without appreciable murmur or gallop. Extremities: Demonstrate trace edema. LABORATORY DATA: Includes white blood cell count of 10.02, hematocrit 41.6, hemoglobin 13.6, platelet count 295,000. Sodium 131, potassium 4.1, chloride 95, carbon dioxide 26, BUN 14, creatinine 0.8, glucose 118. IMPRESSION: 1. Post obstructive pneumonia and lung mass with right pleural effusion. 2. Tiny pericardial effusion. 3. Atrial arrhythmias. Review of telemetry shows sinus rhythm with frequent supraventricular ectopy and occasional runs of atrial tachycardia. One nonsustained episode appeared to possibly be atrial fibrillation versus multifocal atrial tachycardia. Today patient is in sinus rhythm with frequent supraventricular ectopy. Earlier this morning he was in sinus rhythm with brief episodes of atrial tach. 4. Morbid obesity. 5. Chronic cigarette use. 6. Probable obstructive sleep apnea. RECOMMENDATIONS: 1. Continue Cardizem orally. 2. At this point, anticoagulation does not appear warranted unless persistent atrial fibrillation manifests. 3. I will see patient further on an as needed basis. cc: Tyler Ronquillo MD
--- NOTE | 2019-01-02 21:33 | PULMONOLOGY PROGRESS NOTE ---
DATE: 01/02/2019 SUBJECTIVE: The patient is awake and alert. He is without new complaints. OBJECTIVE: Vital Signs: The patient has been afebrile for the last 24 hours. BP 119/67, heart rate 69, respiratory rate 18, oxygen saturation 95% on 3 L per nasal cannula. HEENT: Pupils are equal and reactive. Oropharynx is clear. Neck: Supple. Chest: Diminished breath sounds, right base. Cardiac: S1, S2. Abdomen: Obese and soft. Extremities: Without edema. LABORATORIES: Microbiology from bronchial washings reveal no growth. Preliminary biopsy report from the right lower lobe is consistent with a nonsmall cell carcinoma of the lung. Final pathology report is pending the results of special stains. IMPRESSION: A 58-year-old with lung cancer which involves the right pulmonary artery, with paratracheal, hilar, and subcarinal adenopathy, and hypoxemic respiratory failure. The patient's radiographic presentation does not suggest that he is a candidate for resection. If he did not have adenopathy, he still would require a pneumonectomy. With his morbid obesity and respiratory failure, he is not a candidate for a pneumonectomy, even if he had N1 disease. Therefore, he will be relegated to chemotherapy and/or radiation. PLAN: 1. Continue oxygen for hypoxemic respiratory failure. 2. Await Oncology's recommendations for treatment. cc: Mina Floyd MD
[2019-01-03] MEDS: CARDIZEM PO SCH ×4 (02:02→20:30)
[2019-01-03] MEDS: DUONEB (A & A) INH SCH ×6 (03:01→23:25)
[2019-01-03] MEDS: ZOSYN 3.375 GM in NS 50 ML IV SCH ×3 (05:12→17:26)
[2019-01-03 05:59] LABS: BASO# 0.04 X1000 (0.0-0.2); BASO% 0.5 % (0.0-0.8); EOS# 0.36 X1000 (0.0-0.7); EOS% 4.2 % (0.0-10.0); HEMATOCRIT 42.3 % (42.0-52.0); HEMOGLOBIN 13.7 g/dL (14.0-18.0); IMM GRAN# 0.03 X1000 (0.0-0.04); IMM GRAN% 0.3 % (0.0-0.5); LYMPH# 0.83 X1000 (1.2-3.4); LYMPH% 9.6 % (20.5-51.1); MCH 30.4 PG (27-31); MCHC 32.4 g/dL (33-37); MONO# 0.98 X1000 (0.11-0.59); MONO% 11.3 % (1.7-9.3); MPV 9.6 FL (7.4-10.4); NEUT# 6.41 X1000 (1.4-6.5); NEUT% 74.1 % (42.2-75.2); PLT 310 X1000 (130-400); RDW 13.7 % (11.5-14.5); WBC 8.65 X1000 (4.8-10.8)
[2019-01-03 06:23] LABS: AGAP 13; BUN 14 mg/dL (8-22); CALCIUM 9.5 mg/dL (8.8-10.2); CHLORIDE 99 mmol/L (98-107); COSMO 277; CREATININE 0.6 mg/dL (0.7-1.2); ESTIMATED GFR > 60; GLUCOSE 107 mg/dL (70-104); POTASSIUM 4.3 mmol/L (3.5-5.1); SODIUM 138 mmol/L (136-145); TCO2 26 mmol/L (25-35)
[2019-01-03] MEDS: ZYVOX PO SCH ×2 (08:33→20:30)
--- NOTE | 2019-01-03 13:15 | PROGRESS NOTE ---
DATE: 01/03/2019 SUBJECTIVE: Patient looks well. No major complaints. OBJECTIVE: Blood pressure 124/61, heart rate 120, respiratory rate 16, temperature 97.3 degrees, and 93% on room air.Cardiovascular: Regular rate and rhythm. Pulmonary: Bilateral breath sounds. Clear to auscultation. GI: Soft. Nontender and nondistended. Bowel sounds are positive. LABORATORY DATA: White count was 8, hemoglobin and hematocrit 13 and 42, and platelets 310,000. PROBLEM LIST: 1. Pneumonia, appears to be stable. We will continue to monitor. The patient is on Zyvox and Zosyn. 2. Atrial fibrillation. He is stable on Cardizem. I guess we are holding on anticoagulation to see with Dr. Ronquillo states, it is not warranted. I do not think his CHADS-VASc score is high enough at this point in any case. 3. Possible lung mass. We are still waiting on pathology and decision per Pulmonary and Oncology for other treatment options. Again, I think he is stable to go to the floor. cc: Mac Meek MD
--- NOTE | 2019-01-03 13:32 | HEMO/ONC PROGRESS NOTE ---
DATE: 01/03/2019 SUBJECTIVE: The patient is sitting up at his bedside eating breakfast this morning. He states he feels about the same, no worse, no better. He denies any complaints this morning. He still has a productive cough with white sputum. He is aware of his preliminary biopsy results at this time. He states he had a good night's sleep, and denies any pain at this time. OBJECTIVE: Vital Signs: Temperature 97.3 degrees, pulse rate 67, respiratory rate 18, blood pressure 112/61, O2 saturation 93% on room air. He is in 0/10 pain. General: The patient is in no acute distress. HEENT: Sclera is anicteric. PERRLA. Oral mucosa is normal. Cardiovascular: S1, S2 normal. Heart rate and rhythm normal. Respiratory: Diminished breath sounds noted on right side, otherwise cleared. Normal respiratory effort Gastrointestinal: Abdomen is protuberant, soft, and nontender. Extremities: No lower extremity edema noted. LABORATORY: WBCs 8.65, hemoglobin 13.7, hematocrit 42.3, and platelet count 310,000. ASSESSMENT: 1. Postobstructive pneumonia. 2. Right lung mass with mediastinal and retroperitoneal lymphadenopathy. 3. Bilateral small pleural effusions. 4. Dyspnea. 5. Hemoptysis. 6. Morbid obesity. PLAN: He continues to await for the final results from the biopsy. According to DR. Floyd, preliminary biopsy report from the right lower lobe is consistent with non-small cell carcinoma of the lung. The patient is not a candidate for pneumonectomy. The patient had a bone scan which showed no evidence of metastatic disease. Abdominal lymph node disease is concerning for metastatic disease. Plan for PET and further management outpatient. Dictated by JESSENIA Werner for Nilay Pereyra MD cc: Nilay Pereyra MD [facility]
[2019-01-04] MEDS: ZOSYN 3.375 GM in NS 50 ML IV SCH ×4 (00:22→18:39)
[2019-01-04] MEDS: CARDIZEM PO SCH ×4 (01:09→21:47)
[2019-01-04] MEDS: DUONEB (A & A) INH SCH ×6 (03:11→23:17)
[2019-01-04 06:39] LABS: BASO# 0.05 X1000 (0.0-0.2); BASO% 0.5 % (0.0-0.8); EOS# 0.44 X1000 (0.0-0.7); EOS% 4.1 % (0.0-10.0); HEMATOCRIT 44.5 % (42.0-52.0); HEMOGLOBIN 14.3 g/dL (14.0-18.0); IMM GRAN# 0.04 X1000 (0.0-0.04); IMM GRAN% 0.4 % (0.0-0.5); LYMPH# 1.04 X1000 (1.2-3.4); LYMPH% 9.8 % (20.5-51.1); MCH 30.2 PG (27-31); MCHC 32.1 g/dL (33-37); MCV 94.1 FL (81-99); MONO# 0.99 X1000 (0.11-0.59); MONO% 9.3 % (1.7-9.3); MPV 9.6 FL (7.4-10.4); NEUT# 8.05 X1000 (1.4-6.5); NEUT% 75.9 % (42.2-75.2); PLT 351 X1000 (130-400); RBC 4.73 XMIL (4.7-6.1); RDW 13.8 % (11.5-14.5); WBC 10.61 X1000 (4.8-10.8)
[2019-01-04 07:21] LABS: AGAP 13; BUN 13 mg/dL (8-22); CALCIUM 9.6 mg/dL (8.8-10.2); CHLORIDE 96 mmol/L (98-107); COSMO 273; CREATININE 0.8 mg/dL (0.7-1.2); ESTIMATED GFR > 60; GLUCOSE 124 mg/dL (70-104); POTASSIUM 4.2 mmol/L (3.5-5.1); SODIUM 136 mmol/L (136-145); TCO2 27 mmol/L (25-35)
--- NOTE | 2019-01-04 07:43 | EKG Report ---
Test Performed on : 01/04/2019 07:36:10 AM Test Reason : abnormal telemetry Blood Pressure : / mmHG Vent. Rate : 063 BPM Atrial Rate : 063 BPM P-R Int : 178 ms QRS Dur : 080 ms QT Int : 410 ms P-R-T Axes : 037 034 024 degrees QTc Int : 419 ms Normal sinus rhythm. Normal ECG When compared with ECG of 04-JAN-2019 03:31, (Unconfirmed) No significant change was found Confirmed by Ambrocio PEARSON, Hari Pizano ([id number]) on 01/04/2019 8:46:10 PM
[2019-01-04] MEDS: ZYVOX PO SCH ×2 (08:01→21:47)
--- NOTE | 2019-01-04 08:10 | EKG Report ---
Test Performed on : 01/04/2019 03:31:08 AM Test Reason : SOB Blood Pressure : / mmHG Vent. Rate : 065 BPM Atrial Rate : 065 BPM P-R Int : 166 ms QRS Dur : 080 ms QT Int : 420 ms P-R-T Axes : 046 045 033 degrees QTc Int : 436 ms Normal sinus rhythm. Normal ECG When compared with ECG of 31-DEC-2018 12:24, PACs and SVT are no longer seen Confirmed by Ambrocio PEARSON, Hari Pizano ([id number]) on 01/04/2019 8:41:41 PM
[2019-01-04] MEDS ORDERED: ZOSYN ONE (12:57)
--- NOTE | 2019-01-04 13:27 | CONSULTATION ---
DATE OF CONSULTATION: 01/04/2019 I have been asked to see Mr. Bishop by our Hospitalist, Dr. Mac Meek. His family physician is Dr. Wojciech Ann. His medical oncologist, Dr. Nilay Pereyra. His supervisor drapery hanging, Dr. Jayme Floyd. HISTORY OF PRESENT ILLNESS: Mr. Dewey Bishop has been diagnosed with non-small cell lung cancer, which is unresectable, and he will need chemotherapy for his treatment and we are asked to evaluate him for port placement. It has been discovered that he has a right lung mass with mediastinal and retroperitoneal lymphadenopathy. He has been hospitalized with postobstructive pneumonia and dyspnea. PAST MEDICAL HISTORY: Pancreatitis. PAST SURGICAL HISTORY: None. SOCIAL HISTORY: He smokes a pack of cigarettes a day up until 3 weeks ago. He does not abuse alcohol. ALLERGIES: No known drug allergies. HOME MEDICATIONS: None. REVIEW OF SYSTEMS: Despite his dyspnea, there is no pertinent positives on a 14-point review of the review of systems. The pertinent positives are listed in the history of present illness. FAMILY HISTORY: Family history was reviewed with the patient and was noncontributory. PHYSICAL EXAMINATION: General: Mr. Bishop is overweight. He is short of breath. He is in no acute distress. Vital signs: His heart rate is 62, blood pressure 128/63, O2 saturation 96%. He is afebrile. HEENT exam: No jaundice, no oral lesions. Satisfactory dentition. No cervical or supraclavicular lymphadenopathy. Heart: His heart has a regular rate. Lungs: Had some expiratory wheezing. He did have some shortness of breath. Abdomen: His abdomen soft, nontender, without palpable mass. No costovertebral tenderness. Rectal: Exam was not performed. Extremities: Does have palpable peripheral pulses. No significant peripheral edema. Neurologic: No focal deficit. IMPRESSION: Right-sided non-small cell lung cancer metastatic unresectable. PLAN: Dr. Pereyra has been consulted from Medical Oncology. I have been asked to see him for access for chemotherapy such as with Port-A-Cath and we can arrange placement of this Port-A-Cath prior to him beginning his treatment with Dr. Pereyra as an outpatient. I have discussed a port with him and the placement of a port while at the bedside today. cc: Lilly Buitrago MD
--- NOTE | 2019-01-04 21:14 | PULMONOLOGY PROGRESS NOTE ---
DATE: 01/04/2019 SUBJECTIVE: The patient is awake, alert, and conversant. He is with no new complaints. OBJECTIVE: Vital Signs: The patient has been afebrile for the last 24 hours. Blood pressure 120/65, heart rate 63, respiratory rate 16, oxygen saturation 95% on room air. HEENT: Pupils are equal and reactive. Oropharynx appears clear. Neck: Is supple. Chest: Reveals decreased breath sounds at the right base. LABORATORIES: Transbronchial biopsies have been finalized and are consistent with squamous cell carcinoma, moderately differentiated. IMPRESSION: 58-year-old with 1. Squamous cell carcinoma encasing the right pulmonary artery with paratracheal, hilar, and subcarinal adenopathy. 2. Hypoxemic respiratory failure. 3. Morbid obesity. PLAN: 1. Agree with plans for Port-A-Cath placement per Dr. Buitrago. 2. Await oncology's final recommendations. cc: Mina Floyd MD
[2019-01-05] MEDS: ZOSYN 3.375 GM in NS 50 ML IV SCH ×3 (00:50→13:52)
[2019-01-05] MEDS: DUONEB (A & A) INH SCH ×3 (02:34→11:15)
[2019-01-05] MEDS: CARDIZEM PO SCH ×3 (03:03→13:52)
--- NOTE | 2019-01-05 04:39 | PROGRESS NOTE ---
DATE: 01/04/2019 SUBJECTIVE: Patient has no major complaints. He is breathing comfortably. OBJECTIVE: Vital signs: Blood pressure was 150/70, heart rate 62, respiratory 16, temperature 98.4 degrees, saturation 96% on room air. Cardiovascular: Regular rate and rhythm. Pulmonary: Bilateral breath sounds clear. Gastrointestinal: Soft, nontender. Bowel sounds are positive. LABORATORY DATA: White count 10, hemoglobin and hematocrit 14 and 44. Electrolytes were okay. PROBLEM LIST: 1. Pneumonia. We will continue Zyvox [*] cancer based on preliminary data, this is most likely lung cancer. He has got squamous cell carcinoma, moderately differentiated. Plan will be for port placement and [*] start outpatient chemotherapy. cc: Mac Meek MD
[2019-01-05] MEDS: ZYVOX PO SCH (08:23)
--- NOTE | 2019-01-05 12:38 | HEMO/ONC PROGRESS NOTE ---
DATE: 01/05/2019 SUBJECTIVE: Mr. Bishop is sitting up in his bed. He is eating breakfast this morning. He states he feels better. His cough is greatly improved. He does not feel as sick as he was. His breathing is normal. He states he had a good night's sleep and denies any pain at this time. OBJECTIVE: Vital Signs: Temperature 99.6 degrees, pulse rate 67, respiratory rate 19, blood pressure 127/69, O2 saturation 94% on room air. He is in 0/10 pain. General: On physical examination, he is an obese male in no acute distress. Cardiovascular: Normal S1, S2. Heart rate and rhythm are normal. Respiratory: Diminished breath sounds on the right side, otherwise they are clear to auscultation. Normal respiratory effort. Gastrointestinal: Abdomen is protuberant, soft, nontender. Extremities: No lower extremity abnormality noted. LABORATORY: No labs drawn today. ASSESSMENT: 1. Postobstructive pneumonia. 2. Right lung mass with mediastinal and retroperitoneal lymphadenopathy. 3. Bilateral small pleural effusions. 4. Dyspnea. 5. Hemoptysis. 6. Morbid obesity. PLAN: The patient has been diagnosed with squamous cell carcinoma of the right lung that is unresectable. He also has mediastinal and retroperitoneal lymphadenopathy. We need to obtain an outpatient PET scan to assess for metastasis. At this time it appears he may have disease metastasis in his lymph nodes, but we are unsure until we can obtain a PET scan. We have requested the patient obtain a port for chemotherapy use. From our standpoint, the patient is ready to be discharged. We will follow up with him in the clinic next week. Dictated by JESSENIA Werner for Nilay Pereyra MD cc: Nilay Pereyra MD
[2019-01-05 15:49] VITALS: BP 130/65
--- NOTE | 2019-01-05 22:08 | DISCHARGE SUMMARY ---
ADMISSION DATE: 12/28/2018 DISCHARGE DATE: 01/05/2019 DISPOSITION: Home. FOLLOWUP: Followup will be with: 1. Dr. Pereyra. 2. Dr. Floyd. 3. Dr. Ronquillo. CONSULTATIONS DURING THIS ADMISSION: 1. Cardiology was initially consulted. Patient was seen by Dr. Ronquillo. 2. Hematology/Oncology was consulted. Patient was seen by Dr. Pereyra. 3. Respiratory was consulted. Patient was seen by Dr. Floyd. INVASIVE PROCEDURES DURING THIS ADMISSION: A bronchoscopy with washing and endobronchial biopsies was done by Dr. Floyd on 01/01/2019. Pathology report from the biopsy showed squamous cell carcinoma moderately differentiated. ADMITTING DIAGNOSES: 1. Right lower lobe pneumonia. 2. Lung mass with mediastinal and retroperitoneal lymphadenopathy. 3. Bilateral pleural effusions. 4. Dyspnea. DIAGNOSES AT TIME OF DISCHARGE: 1. Right lower lobe squamous cell carcinoma. 2. Acute hypoxemic respiratory failure on presentation. Improved. 3. Postobstructive pneumonia. 4. Paroxysmal atrial fibrillation. 5. Chronic tobacco use. 6. Suspected obstructive sleep apnea. DISCHARGE MEDICATIONS: 1. Amoxicillin 1 tablet b.i.d. 2. Zyvox 600 p.o. q.12. 3. Aspirin 325 p.o. daily. 4. Diltiazem 120 mg p.o. daily. PRESENTING COMPLAINT: Shortness of breath, hemoptysis. HISTORY OF PRESENTING COMPLAINT: Mr. Bishop is a 58-year-old, male, with past medical history of some remote pancreatitis, came to the emergency department because of shortness of breath, productive cough, intermittent chills. He said the symptoms have been going on for about a month. Upon presenting, he was evaluated, and imaging studies were done, including a chest x- ray which showed right lower lobe infiltrate suspicious for pneumonia. A CT scan of the lungs did show a probable bronchogenic carcinoma centrally in the right lower lobe and pleural effusion, possibly malignant on the right. Mr. bishop was admitted to the medical floor for continued management. HOSPITAL COURSE: Mr. Bishop was admitted to the medical floor, was started on broad-spectrum IV antibiotics, steroids, and bronchodilation therapy. Pulmonary Medicine was consulted. Patient was seen by Dr. Floyd. A decision was made to do a bronchoscopy, which was successfully done. Results reveal squamous cell carcinoma of the right lung. Other workup was done, which did not seem to reveal any metastatic lesion. Surgery was consulted for port placement. However, this was not done before the patient got discharged. I was able to speak directly with Dr. Pereyra today, and he was okay with Mr. Bishop being discharged if he is medically stable, and he will arrange with surgery on outpatient basis for the port to be placed, and for his other oncological outpatient management. Today, Mr. Bishop vitals, blood pressure is 130/65, pulse of 67, respirations 16, temperature is 98.5 degrees. The patient is saturating between 94 to 96 percent on room air. We think he is in stable condition for discharge. He is going to follow up with all of the other subspecialties that have been involved in his care. Also note that Mr. Bishop had some atrial arrhythmias during the hospital course, some paroxysmal atrial fibrillation. He was started on Cardizem. This morning, his heart rate is better controlled. He has a CHADS Vasc score of 0, so we just put him on aspirin, and he will be followed up with Dr. Ronquillo. All of the discharge instructions have been discussed with Mr. Bishop. Specifically, we stressed the need for him to continue abstinence from tobacco products. TIME SPENT FOR DISCHARGE: 38 minutes. cc: Malvin Aguilar MD
== END 2019-01-05 17:36 | disposition home or self-care (01) | DRG 180 ==
LOC: P.ED 09:06 → SUATTDRO 09:07 → ICU 15:58 → 2N 12-29 16:49 → 4N 01-04 12:23
PROVIDERS: ATTEND Internal Medicine

== ENCOUNTER 2019-02-08 22:38 | Inpatient (IN) ==
--- NOTE | 2019-02-08 23:21 | EKG Report ---
Test Performed on : 02/08/2019 11:00:45 PM Test Reason : SOB Blood Pressure : / mmHG Vent. Rate : 091 BPM Atrial Rate : 091 BPM P-R Int : 148 ms QRS Dur : 076 ms QT Int : 336 ms P-R-T Axes : 054 030 038 degrees QTc Int : 413 ms Sinus rhythm. with marked sinus arrhythmia. with occasional premature ventricular complexes. Otherwise normal ECG When compared with ECG of 31-JAN-2019 21:52, (Unconfirmed) premature ventricular complexes. are now present Unconfirmed Result
[2019-02-08] MEDS ORDERED: DUONEB (A & A) INH ONE (23:52)
[2019-02-08] MEDS ORDERED: SOLU-MEDROL IV ONE (23:55)
--- NOTE | 2019-02-08 23:57 | PROVIDER DOCUMENTATION ---
HPI-General Adult - General Chief Complaint: Shortness of Breath Stated Complaint: SOB, DECREASED URINE OP, (CHEMO TUESDAY) Time Seen by Provider: 02/08/19 23:42 Source: patient, family (sister) Allergies/Adverse Reactions: Patient Allergies Allergy/AdvReac Type Severity Reaction Status Date / Time No Known Allergies Allergy Verified 02/08/19 23:14 Home Medications: Home Medication List Medication Instructions Recorded Confirmed Last Taken Type Diltiazem HCl [Cartia Xt] 120 mg PO DAILY 01/31/19 02/08/19 01/31/19 History Metoclopramide [Reglan] 10 mg PO Q6HR PRN 01/31/19 02/08/19 Unknown History Ondansetron [Zofran] 4 mg PO Q6H PRN PRN 01/31/19 02/08/19 Unknown History Promethazine [Phenergan] 25 mg PO Q6H PRN PRN 01/31/19 02/08/19 Unknown History Vitamin B Complex 1 cap PO DAILY 01/31/19 02/08/19 01/31/19 History Zinc Sulfate 2 cap PO DAILY 01/31/19 02/08/19 01/31/19 History Atorvastatin Calcium [Lipitor] 80 mg PO QPM 02/08/19 02/08/19 Unknown History - History of Present Illness -Gen Adult Nature of Presenting Problems: Patient with a RLL squamous cell ca (just received 1st dose of chemotherapy 3 days ago,followed by Dr. Pereyra), and Paroxysmal Afib recently seen here for AMS with abnormal CT head and was transferred to [place], [facility] today with sob of 4 to 6 hrs duration. He report cough without audible wheezing. He was started on abx by PCP today for fever. Had 1st dose this PM. Sister does not know name of medication. No h/o immobilization Location of Pain/Injury: reports: none Pain Radiation: reports: no radiation Quality of Pain: reports: none Onset/Duration: reports: 4-6 hours ago Context/Activities at Onset: reports: none Modifying Factors: improves with: nothing Associated Symptoms: reports: shortness of breath Review of Systems - Adult - REVIEW OF SYSTEMS - ADULT Constitutional: reports: fever, weight loss Eyes: reports: no symptoms reported Ears, Nose, Mouth & Throat: reports: no symptoms reported Cardiovascular: reports: see HPI Respiratory: reports: see HPI, cough, shortness of breath Gastrointestinal: reports: no symptoms reported Genitourinary: reports: no symptoms reported Musculoskeletal: reports: no symptoms reported Integumentary: reports: no symptoms reported Neurological: reports: no symptoms reported Psychiatric: reports: no symptoms reported Endocrine: reports: no symptoms reported Hematologic/Lymphatic: reports: no symptoms reported Allergic/Immunologic: reports: no symptoms reported Past History - Adult - PAST MEDICAL HISTORY-ADULT Review of Records: reports: Nursing Assessment Review, Medications Reviewed, Social history reviewed & non-contributory. Major Childhood Illnesses: reports: denies history Cardiovascular: reports: A-Fib Respiratory: reports: denies history Gastrointestinal: reports: pancreatitis Genitourinary: reports: denies history Musculoskeletal: reports: denies history Neurological: reports: denies history Psychiatric: reports: denies history Endocrine/Immune: reports: denies history Other Conditions: reports: denies history - PRIOR SURGERIES/PROCEDURES Surgical/Procedure History: reports: reviewed, not pertinent - IMMUNIZATION STATUS Childhood Immunizations: See Nurse Assessment Flu Vaccine: See Nurse Assessment - FAMILY HISTORY Family History: reviewed, not pertinent - SOCIAL HISTORY Smoking: cigarettes (former smoker) Substance Use: denies Alcohol Use Frequency: rarely (denies) Living Situation: family (with sister) Physical Exam-General - PHYSICAL EXAM-ADULT Initial Vital Signs Reviewed: Yes - CONSTITUTIONAL General Appearance: alert, mild distress, moderate distress - EYES Eyes: PERRL/EOMI - HEAD, EARS, NOSE, MOUTH & THROAT HENMT: normocephalic/atraumatic - NECK Neck: non-tender, full range of motion, supple - RESPIRATORY Respiratory: chest non-tender, decreased breath sounds (right lung), wheezing (scanty on the right) - CARDIOVASCULAR Cardiovascular: no edema, no JVD - GASTROINTESTINAL (ABDOMEN) Abdominal Exam: non tender, soft - MUSCULOSKELETAL Back Exam: normal inspection Extremity: normal range of motion, non-tender - SKIN Integumentary: normal color - NEUROLOGIC Neurologic: pillow filler II-XII nml as tested - PSYCHIATRIC Psych/Mental Status: oriented x 3 Progress - PLAN OF CARE/RESULTS Progress/Plan/Lab Results: Vital Signs - 8 hr 02/08/19 22:51 Temperature 98.8 F Pulse Rate 94 H Respiratory Rate 18 Blood Pressure 111/60 O2 Sat by Pulse Oximetry 96 Orders Category Date Time Status EKG [EKG] Stat Ther 02/08/19 22:55 Draft Result Diagrams: 11/01/19 00:20 02/09/19 00:20 - REASSESSMENT Reassessment #1 Time Reassessed: 01:30 Status: improving (slightly improved after duoneb but noted to be coughing. Still decreased air entry and scattered wheezing on the right lung. for repeat albuterol, abx, sputum and blood cx) - CT/MRI 1 CT Study: Thorax (findings c/w postobstructive pneumonia with progressive consolidation of right lung, increasing right pleural effusion) - CONSULTS/PCP/HOSPITALIST Notification #1 *Consult/PCP/Hospitalist*: Dr. Canchola,hospitalist Time Discussed: 02:45 Consult Disposition: Admit - CHANGE OF SHIFT REPORT (ED Provider) 1 Report Given and Care Transferred to:: Dr Morgan at the end of my shift Time of Transfer: 01:56 Items Pending: CT/MRI Results, Physician Consult/Arrival Departure - Departure Date of Disposition Decision: 02/09/19 Time of Disposition Decision: 03:05 DIAGNOSIS: Failure of outpatient treatment, Mediastinal lymphadenopathy, Lung cancer RLL pneumonia Qualifiers: Pneumonia type: due to unspecified organism Qualified Code(s): J18.1 - Lobar pneumonia, unspecified organism Disposition: ADMITTED INPATIENT 09 Certified Medical Emergency: Emergent Condition: Stable Referrals and Follow-Ups: None,PCP [Primary Care Provider] - - Critical Care Note This patient required my direct & personal management of CC.: No Attestation - Physician/ REKHA Attestation Patient care was provided by Advanced Practice Provider:: No The physician spent face to face time with patient:: Yes Advanced Practice Provider documentation review:: Supervising physician onsite and consulted in the evaluation and care of this patient. The physician did have a face to face encounter with the patient.
[2019-02-09 00:46] LABS: BASO# 0.01 X1000 (0.0-0.2); BASO% 0.2 % (0.0-0.8); EOS# 0.03 X1000 (0.0-0.7); EOS% 0.6 % (0.0-10.0); HEMATOCRIT 42.5 % (42.0-52.0); HEMOGLOBIN 13.7 g/dL (14.0-18.0); IMM GRAN# 0.02 X1000 (0.0-0.04); IMM GRAN% 0.4 % (0.0-0.5); LYMPH# 0.43 X1000 (1.2-3.4); LYMPH% 7.9 % (20.5-51.1); MCH 29.1 PG (27-31); MCHC 32.2 g/dL (33-37); MCV 90.2 FL (81-99); MONO# 0.13 X1000 (0.11-0.59); MONO% 2.4 % (1.7-9.3); MPV 9.8 FL (7.4-10.4); NEUT% 88.5 % (42.2-75.2); PLT 222 X1000 (130-400); RBC 4.71 XMIL (4.7-6.1); WBC 5.42 X1000 (4.8-10.8)
[2019-02-09 01:14] LABS: AGAP 13; ALBUMIN 3.2 g/dL (3.5-5.0); ALKALINE PHOSPHATASE 122 U/L (32-122); BUN 15 mg/dL (8-22); CALCIUM 9.4 mg/dL (8.8-10.2); CHLORIDE 95 mmol/L (98-107); CK PROFILE 29 U/L (24-204); COSMO 269; CREATININE 0.8 mg/dL (0.7-1.2); ESTIMATED GFR > 60; GLUCOSE 91 mg/dL (70-104); GOT 45 U/L (10-34); GPT 78 U/L (10-44); POTASSIUM 4.4 mmol/L (3.5-5.1); SODIUM 134 mmol/L (136-145); TCO2 26 mmol/L (25-35); TOTAL BILIRUBIN 0.62 mg/dL (0.20-1.00); TOTAL PROTEIN 6.3 g/dL (6.3-8.3)
[2019-02-09] MEDS ORDERED: VANCOMYCIN 1 GM/NS 1 GM/250 ML IVPB IV ONE (01:23)
[2019-02-09] MEDS ORDERED: ZOSYN 4.5 GM in NS 100 ML IV ONE (01:23)
[2019-02-09] MEDS ORDERED: ALBUTEROL NEB INH ONE (01:24)
[2019-02-09] MEDS ORDERED: NS 1,000 ML IV SCH (04:06)
[2019-02-09] MEDS: LEVAQUIN 750 MG/D5W 750 MG/150 ML IVPB IV SCH (04:44)
[2019-02-09] MEDS: DUONEB (A & A) INH SCH ×6 (05:24→23:12)
[2019-02-09] MEDS: PRILOSEC PO SCH (06:08)
--- NOTE | 2019-02-09 06:11 | Diag Imaging Result Doc PS360 ---
EXAM: CHEST-2 VIEWS HISTORY: sob TECHNIQUE: Two views COMPARISON: 12/28/2018 FINDINGS: The left lung is well expanded and clear. There is a small to moderate-sized right pleural effusion with underlying atelectasis and infiltrates. This is likely postobstructive from a right hilar mass. There is a right-sided portacatheter. No pneumothorax. IMPRESSION: Right lower lobe postobstructive atelectasis and pneumonia with right pleural effusion. Electronically signed by Issa Araujo 02/09/2019 6:08 AM
[2019-02-09] MEDS ORDERED: VANCOMYCIN IV PER PHARMACY MISC SCH (06:45)
--- NOTE | 2019-02-09 06:57 | HISTORY AND PHYSICAL ---
CHIEF COMPLAINT: Shortness of breath. HISTORY OF PRESENT ILLNESS: Mr. Dewey Bishpo is a 58-year-old male who has a history of right lower lobe squamous cell cancer and follows up with Dr. Pereyra. The patient recently received 1 dose of chemotherapy about 3 days prior to presentation. He also has a history of atrial fibrillation. He presents to the hospital because of shortness of breath, along with cough productive of whitish to greenish sputum. He also describes having wheezing. He recently quit cigarette smoking. No hemoptysis. He presented to the hospital. X-ray of the chest done showed right lower lobe post obstructive atelectasis and pneumonia with right pleural effusion. PAST MEDICAL HISTORY: His past medical history is that of recent history of right lower lobe pneumonia, squamous cell cancer of right lower lobe, paroxysmal atrial fibrillation, chronic tobacco use, suspected obstructive sleep apnea. SOCIAL HISTORY: The patient recently quit cigarette smoking. No alcohol or drug use. ALLERGIES: No known drug allergies. PAST SURGICAL HISTORY: Not remarkable. FAMILY HISTORY: Positive for hypertension. MEDICATIONS: His medications include the following: Diltiazem 120 mg p.o. once a day, Reglan 10 mg every 6 hours p.r.n., Zofran 4 mg every 6 hours p.r.n., promethazine 25 mg p.o. every 6 hours p.r.n., vitamin B complex 1 p.o. daily, zinc sulfate 2 caps daily, atorvastatin 80 mg p.o. daily. REVIEW OF SYSTEMS: Constitutional: No fever. Central Nervous System: No headaches. Eyes: No blurred vision. ENT: No sore throat. No hearing loss. Gastrointestinal: No nausea, vomiting, diarrhea. Genitourinary: No dysuria. Muscular: No joint pains. Hematology: No bleeding problems. Dermatology: No skin lesions. Genitourinary: No dysuria. Psychiatric: No anxiety or depression. Endocrine: No thyroid disease or diabetes. Allergies: No symptoms suggestive of allergic rhinitis. PHYSICAL EXAMINATION: VITAL SIGNS: On examination, his vital signs are as follows: Temperature 99.4 degrees, pulse 92, respiratory rate 18, blood pressure 111/66, and O2 saturation is 97%. HEENT: Atraumatic, normocephalic. He is anicteric. No oral lesions noted. NECK: No lymphadenopathy or thyromegaly. CARDIOVASCULAR: S1, S2. RESPIRATORY: Has evidence of good air entry bilaterally. ABDOMEN: Soft, obese, nontender. No masses felt. EXTREMITIES: No evidence of edema. CENTRAL NERVOUS SYSTEM: No obvious focal deficits noted. LABORATORIES: WBC is 5.42, hematocrit is 42.5 with a platelet count of 222,000. Sodium is 134, potassium 4.4, chloride is 95, bicarbonate 26, BUN is 15, creatinine 0.8. AST 45, ALT 78. ProBNP is [*] X-ray of the chest shows evidence of right lower lobe postobstructive atelectasis and pneumonia with right pleural effusion. ASSESSMENT AND PLAN: 1. Pneumonia, probably postobstructive/hospital-acquired. We will follow up on sputum culture and blood cultures. Maintain patient on antibiotics. We will use a combination of Levaquin, Zosyn, as well as vancomycin. 2. Right pleural effusion. Consult with Pulmonology. 3. History of right lower lobe squamous cell cancer. Consult with the patient's oncologist, Dr. Pereyra. 4. Paroxysmal atrial fibrillation. Continue rate controlling agents. Place patient on telemetry. Check thyroid function tests. 5. Suspected obstructive sleep apnea. The patient will need to follow up with a sleep specialist post discharge from the hospital. 6. Abnormal liver function tests. Check hepatitis panel, as well as abdominal ultrasound. 7. Deep vein thrombosis prophylaxis. Sequential compression devices. 8. Gastrointestinal prophylaxis. Proton pump inhibitor. cc: Reji Canchloa MD
--- NOTE | 2019-02-09 06:57 | Diag Imaging Result Doc PS360 ---
CT THORAX W/CONTRAST - 02/09/2019 INDICATION: sob, abn cxr COMPARISON: 12/28/2018 FINDINGS: There is now near complete opacification of the right lower and middle lobes. The lobar bronchi are completely opacified. There is midline shift to the right indicating volume loss and at least a component of atelectasis. There is a small free-flowing right pleural effusion. There is worsening mediastinal adenopathy. The left lung remains clear. Bones are intact. Stable right chest port. There are increasing bilateral adrenal nodules. There is worsening celiac lymphadenopathy in the upper abdomen. There is a questionable hypoenhancing nodule in the lateral pole of the spleen which may indicate a metastasis. IMPRESSION: Severe worsening lung cancer. Small right pleural effusion. Complete collapse of the right lower and middle lobes. This exam was performed using automated exposure control, adjustment of mA or kV according to patient size, and/or use of iterative reconstruction technique Electronically signed by Bryon Mccullough 02/09/2019 6:55 AM
[2019-02-09 07:42] LABS: FREE T4 1.06 ng/dL (0.93-1.70); TSH 1.29 uIUmL (0.27-4.20)
[2019-02-09] MEDS: CARDIZEM CD PO SCH (10:25)
[2019-02-09] MEDS: ZOSYN 3.375 GM in NS 50 ML IV SCH ×3 (10:26→18:16)
[2019-02-09] MEDS: VANCOMYCIN 2 GM in NS 500 ML IV SCH (10:32)
[2019-02-09] MEDS: MUCOMYST 20% INH SCH ×2 (11:28→19:55)
--- NOTE | 2019-02-09 13:09 | HEMO/ONC CONSULTATION ---
DATE: 02/09/2019 REASON FOR CONSULTATION: This is a known patient of ours for the treatment of metastatic squamous cell carcinoma of the lung HISTORY OF PRESENT ILLNESS: Mr. Bishop is a 58-year-old male with a recent history of right lower lobe metastatic squamous cell carcinoma to the lungs followed by our clinic. He recently began treatment with Abraxane, carboplatin and Keytruda 02/06/2019. He presented to the hospital with increased shortness of breath, along with a productive cough with green to white sputum. He has notable wheezing. Since his diagnosis, he has quit smoking. He denies hemoptysis. While in the ER, chest x-ray shows right lower lobe postobstructive atelectasis and pneumonia with right pleural effusion. The patient was admitted for further evaluation and management. PAST MEDICAL HISTORY: Pancreatitis, metastatic squamous cell carcinoma of the right lower lobe, paroxysmal atrial fibrillation, chronic tobacco use and obstructive sleep apnea. PAST SURGICAL HISTORY: Denies SOCIAL HISTORY: He smokes approximately 1 pack a day until approximately a month ago. Denies alcohol or illicit drug use. ALLERGIES: No known drug allergies. HOME MEDICATIONS: Lipitor, Cardia XT, Reglan, Zofran, Phenergan, vitamin B complex and zinc sulfate. REVIEW OF SYSTEMS: Pertinent positives are noted in the HPI. Review of systems otherwise negative. PHYSICAL EXAMINATION: Vital Signs: Temperature 98.2 degrees, pulse rate 65, respiratory rate 20, blood pressure 113/77, O2 saturation 100% on nasal cannula via 2 L. He is in 0/10 pain. General: On physical examination, the patient is in no acute distress. HEENT: Sclerae are anicteric. PERRLA. Oral mucosa normal. Cardiovascular: Normal S1, S2. Heart rate and rhythm is regular. Respiratory: Diminished to absent breath sounds noted to the right lower lung. Wheezes noted bilaterally. Minimal respiratory distress. Abdomen: Protuberant, soft, nontender. No hepatosplenomegaly. Extremities: +1 edema noted. Neurological: No obvious focal motor deficits. LABORATORY: WBCs 5.42, hemoglobin 13.7, hematocrit 42.5, platelet count 222,000. Sodium 134, creatinine 0.8, calcium 9.4, AST 45, ALT 78, alkaline phosphatase 122. ProBNP 310. RADIOLOGY: Chest x-ray: Right lower lobe post obstructing atelectasis and pneumonia with right pleural effusion. Chest CT: Severe worsening lung cancer. Small right pleural effusion. Complete collapse of the right lower and middle lobes. ASSESSMENT AND PLAN: 1. Shortness of breath is most likely being caused by his lung collapse due to worsening lung cancer, pleural effusion and obstructive atelectasis. Please obtain radiation consultation. Continue medical management with the patient on oxygen. Consult respiratory therapy. 2. Fever. Continue daily complete blood counts with the patient on antibiotics. 3. Deep vein thrombosis prophylaxis. Keep patient on sequential compression devices. The patient has been instructed to get out of bed often. 4. Nutrition and deconditioning. Patient has been encouraged to get out of bed as much as possible. He will also receive protein shakes while he is in the hospital. Dictated by JESSENIA Werner for Nilay Pereyra MD cc: Nilay Pereyra MD MTDD
--- NOTE | 2019-02-09 16:52 | Diag Imaging Result Doc PS360 ---
US ABDOMEN-COMPLETE - 02/09/2019 INDICATION: abnormal lfts COMPARISON: CT from 01/30/2019 FINDINGS: There are a few large stones in the gallbladder measuring up to 2.8 cm. No gallbladder distention or wall thickening. The liver, pancreas, spleen, and both kidneys are normal. Common bile duct measures 5 mm. Aorta, IVC, and main portal vein are patent. IMPRESSION: Large gallstones in the gallbladder. No gallbladder inflammation. Electronically signed by Byron Mccullough 02/09/2019 4:49 PM
--- NOTE | 2019-02-09 19:22 | PULMONOLOGY CONSULTATION ---
DATE: 02/09/2019 REQUESTING CLINICIAN: Dr. Reji Canchola. HISTORY OF PRESENT ILLNESS: Mr. Bishop is a 58-year-old white male with a greater than 40-pack- year history for tobacco who was admitted to the hospital 12/28/2018 with a 40 pack-year history for tobacco, hemoptysis, and a large right hilar mass. The patient underwent bronchoscopy and was diagnosed with a squamous cell carcinoma. He recently had his 1st chemotherapy treatment. He has not had any radiation therapy. The patient presented to the emergency room with shortness of breath. CT pulmonary angiogram was performed which reveals near-complete opacification of the right lower and middle lobes, increasing mediastinal adenopathy with small right-sided pleural effusion. PAST MEDICAL HISTORY AND PROBLEM LIST: 1. Metastatic squamous cell carcinoma of the lung per Oncology. 2. Pancreatitis. 3. Paroxysmal atrial fibrillation. 4. Obesity. 5. Obstructive sleep apnea. SOCIAL HISTORY: The patient reports he stopped smoking approximately 1 month ago. FAMILY HISTORY: Noncontributory to current presentation. REVIEW OF SYSTEMS: Notable for cough, clear sputum without hemoptysis, occasional fever and chills, dyspnea on any exertion. PHYSICAL EXAMINATION: General: Reveals an obese white male sitting on the side of his bed in no distress. Blood pressure 114/77, heart rate 65, respiratory rate 20, oxygen saturation 100% on 2 L per nasal cannula. HEENT: Pupils are equal and reactive. Oropharynx appears clear. Neck: Supple. Chest: Reveals diminished breath sounds throughout the right lung base. Cardiac Exam: S1-S2. Abdomen: Soft and obese. Extremities: Without edema. IMPRESSION: A 58-year-old with 1. Advanced lung cancer with progression on CT scan. 2. Consolidation of the right middle lobe and right lower lobe, making it difficult to identify tumor location/extent. He does not have a distal airway to allow stent placement. 3. Small right-sided pleural effusion. 4. Atrial fibrillation. 5. Hypoxemic respiratory failure. RECOMMENDATIONS: 1. Agree with antibiotics for the post obstruction. 2. Agree with radiation evaluation for tumor of the right lower lobe to see if radiation will decrease the obstruction. 3. Continue oxygen for hypoxemic respiratory failure. 4. Chemotherapy management per Dr. Pereyra. 5. Continue to follow the pleural effusion. It is small and not likely contributing to his respiratory compromise. cc: Mina Floyd MD
[2019-02-09] MEDS: LIPITOR PO SCH (21:22)
[2019-02-10] MEDS: ZOSYN 3.375 GM in NS 50 ML IV SCH ×3 (00:41→17:20)
[2019-02-10] MEDS: VANCOMYCIN 2 GM in NS 500 ML IV SCH (02:52)
[2019-02-10] MEDS: DUONEB (A & A) INH SCH ×5 (03:46→19:21)
[2019-02-10] MEDS: PRILOSEC PO SCH (06:27)
[2019-02-10] MEDS: MUCOMYST 20% INH SCH ×2 (07:43→19:20)
[2019-02-10 08:01] LABS: EOS# 0.01 X1000 (0.0-0.7); EOS% 0.2 % (0.0-10.0); HEMATOCRIT 39.4 % (42.0-52.0); HEMOGLOBIN 12.2 g/dL (14.0-18.0); IMM GRAN# 0.02 X1000 (0.0-0.04); IMM GRAN% 0.4 % (0.0-0.5); LYMPH# 0.44 X1000 (1.2-3.4); LYMPH% 8.1 % (20.5-51.1); MCH 28.8 PG (27-31); MCV 92.9 FL (81-99); MONO# 0.15 X1000 (0.11-0.59); MONO% 2.8 % (1.7-9.3); MPV 9.9 FL (7.4-10.4); NEUT# 4.82 X1000 (1.4-6.5); NEUT% 88.5 % (42.2-75.2); PLT 201 X1000 (130-400); RBC 4.24 XMIL (4.7-6.1); RDW 14.4 % (11.5-14.5); WBC 5.44 X1000 (4.8-10.8)
[2019-02-10 08:13] LABS: AGAP 12; ALB/GLOB RATIO 1.1; ALBUMIN 3.2 g/dL (3.5-5.0); ALKALINE PHOSPHATASE 94 U/L (32-122); BUN 14 mg/dL (8-22); CALCIUM 8.4 mg/dL (8.8-10.2); CHLORIDE 101 mmol/L (98-107); COSMO 281; CREATININE 0.6 mg/dL (0.7-1.2); ESTIMATED GFR > 60; GLUCOSE 126 mg/dL (70-104); GOT 29 U/L (10-34); GPT 55 U/L (10-44); POTASSIUM 4.1 mmol/L (3.5-5.1); SODIUM 140 mmol/L (136-145); TCO2 27 mmol/L (25-35); TOTAL BILIRUBIN 0.41 mg/dL (0.20-1.00); TOTAL PROTEIN 6.2 g/dL (6.3-8.3)
[2019-02-10] MEDS: LEVAQUIN 750 MG/D5W 750 MG/150 ML IVPB IV SCH (08:46)
[2019-02-10] MEDS ORDERED: LOVENOX SUBQ SCH (09:00)
[2019-02-10] MEDS: CARDIZEM CD PO SCH (09:39)
--- NOTE | 2019-02-10 13:11 | HEMO/ONC PROGRESS NOTE ---
DATE: 02/10/2019 SUBJECTIVE: The patient is sitting up on the side of his bed this morning. He is working on leg exercises. States he also tries to stand and move about the room when he can. He feels his shortness of breath is somewhat under control. He feels better with the oxygen on. He denies pain and he denies any complaints. OBJECTIVE: Vital Signs: Temperature 97.4 degrees, pulse rate 66, respiratory rate 20, blood pressure 106/64, O2 saturation 98% on 2L via NC. States he is in 0/10 pain. PHYSICAL EXAMINATION: General: He is in no acute distress. HEENT: Sclerae is anicteric. PERRLA. Oral mucosa is normal. Cardiovascular: Cardiovascular normal S1, S2. Heart rate and rhythm is regular. Respiratory: Absent breath sounds noted to the right lower lung. Clear to auscultation on the left lung. Mild shortness of breath noted in talking. Abdomen: Protuberant, soft, nontender with no hepatosplenomegaly. Extremities: +1 edema noted to lower extremities. Neurological: Awake, alert, and oriented x3. No focal motor deficits. LABORATORY: WBCs 5.44, hemoglobin 12.2, hematocrit 39.4, platelet count 201,000. Immunoglobulins all within normal range. ASSESSMENT AND PLAN: 1. Shortness of breath. This is most likely due to worsening lung cancer causing airway obstruction. The patient has met with radiation doctor and states the plans are to get to get a marking CT done on Tuesday in [place]. Start radiation as soon as possible. Continue oxygen therapy with respiratory therapy. He is s/p 1 cycle of chemotherapy. Continue medical management. 2. Fever. Continue daily CBCs. We will continue patient's antibiotics and medical treatment. 3. Deep vein thrombosis prophylaxis. The patient is aware that he needs to get out of bed and continue to move his legs. He is doing exercises ad shaye. He will utilize sequential compression devices when he is resting. 4. Nutrition and deconditioning. Patient is encouraged to get out of bed and do exercises. He also has protein shakes for his diet. Dictated by JESSENIA Werner for Nilay Pereyra MD cc: Nilay Pereyra MD [facility]
--- NOTE | 2019-02-10 18:21 | PROGRESS NOTE ---
DATE: 02/10/2019 SUBJECTIVE: The patient is sitting at the edge of the bed using his incentive spirometer. He has no complaints. OBJECTIVE: Vital Signs: Temperature 97.3 degrees, blood pressure 111/68, heart rate 68, respirations 20, O2 saturation is 100% on 2 L nasal cannula. General: This is an overweight male sitting at the edge of the bed in no acute distress. Heart: S1, S2 normal. Regular rate and rhythm. Lungs: Equal air entry bilaterally. No wheezing. No rales. Abdomen: Positive bowel sounds. Soft, nontender, nondistended. Extremities: No edema. No cyanosis. Neurologic: The patient is alert and oriented x3. LABORATORY DATA: Sodium 140, potassium 4.1, chloride 101, CO2 of 27, BUN 14, creatinine 0.6 glucose 126. AST 29, ALT 55, alkaline phosphatase 94. ASSESSMENT AND PLAN: 1. Acute hypoxemic respiratory failure. Multifactorial. The patient has extensive lung cancer plus pneumonia. 2. Suspected postobstructive pneumonia. Continue with antibiotic therapy and supplemental oxygen. 3. Atrial fibrillation. The patient is rate controlled. 4. Extensive squamous cell lung cancer. Radiation Oncology has been consulted to initiate radiation treatments. Further management as per Dr. Pereyra. 5. Deep vein thrombosis prophylaxis. We will start the patient on Lovenox. cc: Cristina Maddox MD
[2019-02-10] MEDS: VANCOMYCIN 1,500 MG in NS 250 ML IV SCH (21:32)
[2019-02-10] MEDS: LIPITOR PO SCH (21:33)
[2019-02-10] MEDS: LOVENOX SUBQ SCH (21:34)
[2019-02-11] MEDS: DUONEB (A & A) INH SCH ×7 (00:15→23:43)
[2019-02-11] MEDS: ZOSYN 3.375 GM in NS 50 ML IV SCH ×4 (00:35→18:34)
[2019-02-11] MEDS: PRILOSEC PO SCH (06:22)
[2019-02-11 08:07] LABS: EOS% 1.4 % (0.0-10.0); HEMATOCRIT 41.7 % (42.0-52.0); HEMOGLOBIN 12.9 g/dL (14.0-18.0); IMM GRAN# 0.03 X1000 (0.0-0.04); IMM GRAN% 0.4 % (0.0-0.5); LYMPH# 0.68 X1000 (1.2-3.4); LYMPH% 9.2 % (20.5-51.1); MCH 28.9 PG (27-31); MCHC 30.9 g/dL (33-37); MCV 93.3 FL (81-99); MONO# 0.22 X1000 (0.11-0.59); MPV 9.8 FL (7.4-10.4); NEUT# 6.36 X1000 (1.4-6.5); PLT 225 X1000 (130-400); RBC 4.47 XMIL (4.7-6.1); RDW 14.8 % (11.5-14.5); WBC 7.39 X1000 (4.8-10.8)
[2019-02-11 08:19] LABS: AGAP 10; BUN 11 mg/dL (8-22); CALCIUM 8.4 mg/dL (8.8-10.2); CHLORIDE 101 mmol/L (98-107); COSMO 273; CREATININE 0.6 mg/dL (0.7-1.2); ESTIMATED GFR > 60; GLUCOSE 98 mg/dL (70-104); SODIUM 137 mmol/L (136-145); TCO2 26 mmol/L (25-35)
[2019-02-11] MEDS: MUCOMYST 20% INH SCH ×2 (08:21→20:15)
[2019-02-11 08:51] LABS: ANISOCYTOSIS 1+; EOS 2 % (1-10); LYMPHS 10 % (21-51); MONO 3 % (1-9); POIKILOCYTOSIS 1+; SEGS 85 % (42-75); TARGET CELLS 1+
[2019-02-11] MEDS: CARDIZEM CD PO SCH (09:09)
[2019-02-11] MEDS: VANCOMYCIN 1,500 MG in NS 250 ML IV SCH ×2 (09:09→20:43)
[2019-02-11] MEDS: LEVAQUIN 750 MG/D5W 750 MG/150 ML IVPB IV SCH (09:09)
--- NOTE | 2019-02-11 11:31 | Diag Imaging Result Doc PS360 ---
EXAM: CHEST-2 VIEWS 02/11/2019 HISTORY: hypoxia TECHNIQUE: PA and lateral chest COMMENT: There is a large right pleural effusion. There is atelectasis and/or pneumonia in the right lower and middle lobes. The appearance the chest has not changed significantly since the previous study of 02/09/2019. IMPRESSION: Large right pleural effusion and basilar atelectasis. Electronically signed by Taco Garsia 02/11/2019 11:29 AM
[2019-02-11 11:42] LABS: HEPATITIS PROFILE ACUTE SEE COMMENTS
--- NOTE | 2019-02-11 17:32 | PROGRESS NOTE ---
DATE: 02/11/2019 SUBJECTIVE: The patient is sitting at the edge of the bed. He has no complaints at this time. He does have a slight cough. OBJECTIVE: Vital Signs: Temperature 97.8 degrees, blood pressure 116/78, heart rate 73, respirations 20, O2 saturations 100% on room air. General: This is a morbidly obese male sitting at the edge of the bed in no acute distress. Heart: S1, S2 normal. Regular rate and rhythm. Lungs: Diminished breath sounds in the right lung field. Abdomen: Positive bowel sounds. Soft, nontender, nondistended. Extremities: No edema, no cyanosis. Neurologic: The patient is alert and oriented x3. LABS: White blood cell count 7.3, hemoglobin 12, hematocrit 40, and platelets 225,000. Sodium 137, chloride 101, CO2 26, BUN 11, creatinine 0.6, glucose 98. IMAGING PROCEDURE: Chest x-ray shows a large right pleural effusion and atelectasis and/or pneumonia in the right lower lobe and middle lobe. ASSESSMENT AND PLAN: 1. Postobstructive pneumonia. Continue with antibiotics and bronchodilator therapy. 2. Large right pleural effusion. Aware. 3. Atrial fibrillation. The patient is rate controlled. 4. Squamous cell lung cancer. The patient will be undergoing radiation therapy as outpatient. Dr. Pereyra is following. 5. Deep vein thrombosis prophylaxis. Continue on Lovenox. cc: Cristina Maddox MD
[2019-02-11] MEDS: LIPITOR PO SCH (20:43)
[2019-02-11] MEDS: LOVENOX SUBQ SCH (20:43)
[2019-02-12] MEDS: ZOSYN 3.375 GM in NS 50 ML IV SCH ×5 (01:30→22:50)
[2019-02-12] MEDS: DUONEB (A & A) INH SCH ×4 (03:40→19:46)
[2019-02-12] MEDS: VANCOMYCIN 1,500 MG in NS 250 ML IV SCH ×2 (05:47→18:12)
[2019-02-12] MEDS: PRILOSEC PO SCH (06:28)
[2019-02-12 07:41] LABS: AGAP 12; BUN 6 mg/dL (8-22); CALCIUM 7.6 mg/dL (8.8-10.2); CHLORIDE 103 mmol/L (98-107); COSMO 276; CREATININE 0.7 mg/dL (0.7-1.2); ESTIMATED GFR > 60; GLUCOSE 89 mg/dL (70-104); POTASSIUM 3.4 mmol/L (3.5-5.1); SODIUM 140 mmol/L (136-145); TCO2 25 mmol/L (25-35)
[2019-02-12] MEDS: MUCOMYST 20% INH SCH ×2 (07:58→22:17)
[2019-02-12] MEDS: LEVAQUIN 750 MG/D5W 750 MG/150 ML IVPB IV SCH (08:37)
[2019-02-12] MEDS: CARDIZEM CD PO SCH (08:38)
[2019-02-12] MEDS ORDERED: KLOR-CON PO ONE ×2 (10:54→11:00)
--- NOTE | 2019-02-12 16:42 | EKG Report ---
Test Performed on : 02/12/2019 4:24:52 PM Test Reason : sinus tach Blood Pressure : / mmHG Vent. Rate : 104 BPM Atrial Rate : 079 BPM P-R Int : 158 ms QRS Dur : 078 ms QT Int : 364 ms P-R-T Axes : 043 015 029 degrees QTc Int : 478 ms Sinus rhythm. with premature atrial complexes. with aberrant conduction. Otherwise normal ECG When compared with ECG of 08-FEB-2019 23:00, (Unconfirmed) premature ventricular complexes. are no longer present aberrant conduction. is now present QT has lengthened Unconfirmed Result
[2019-02-12] MEDS ORDERED: NS NEB INH SCH (17:00)
--- NOTE | 2019-02-12 17:05 | HEMO/ONC PROGRESS NOTE ---
DATE: 02/12/2019 SUBJECTIVE: Patient is up out of bed morning taking laps around the hospital unit. He states he feels very well. He is doing well off his oxygen with his breathing. He feels minimally short of breath. The patient is scheduled to go to [facility] today to get his marking CT done for radiation therapy. He had a good night's sleep. He denies any significant complaint. OBJECTIVE: Vital Signs: Temperature 97.9 degrees, pulse rate 90, respiratory rate 18, blood pressure 127/77, O2 saturation 100% on room air, he is in 0/10 pain. General: Patient is in no acute distress. HEENT: Sclera is anicteric. PERRLA. Oral mucosa is normal. Cardiovascular: Normal S1, S2. Heart rate and rhythm regular. Respiratory: Absent breath sounds noted the right lung, is clear to auscultation on the left, mild shortness of breath is noted when walking and talking . Abdomen: Protuberant, soft, nontender without any masses. Extremities: +1 lower extremity edema noted. Neurological: Awake, alert, oriented x3. No focal motor deficits. LABORATORIES: Potassium 3.4, calcium 7.6. Hepatitis panel was all nonreactive. ASSESSMENT AND PLAN: 1. Shortness of breath, this is due to his worsening lung cancer causing airway obstruction. Patient has had his marking CT done today. He needs to start radiation as soon as possible. Continue oxygen therapy as necessary. He is status post 1 cycle chemotherapy. Continue medical management. 2. Fever. Continue daily CBCs, we will continue patient antibiotic per medical treatment. 3. Deep venous thrombosis prophylaxis. The patient is being very active about exercising and walking. 4. Nutrition and deconditioning the patient continues to do exercises and walk as necessary, he is drinking protein shakes as instructed. Dictated by JESSENIA Werner for Nilay Pereyra MD cc: Nilay Pereyra MD [facility]
[2019-02-12] MEDS: LIPITOR PO SCH (21:43)
[2019-02-12] MEDS: ANUSOL-HC CREAM PR SCH (21:45)
[2019-02-12] MEDS: LOVENOX SUBQ SCH (21:47)
[2019-02-12] MEDS: XOPENEX NEB INH SCH (22:17)
[2019-02-13] MEDS: ZOSYN 3.375 GM in NS 50 ML IV SCH ×2 (04:29→09:17)
[2019-02-13] MEDS: VANCOMYCIN 1,500 MG in NS 250 ML IV SCH (04:37)
--- NOTE | 2019-02-13 05:18 | PROGRESS NOTE ---
DATE: 02/12/2019 SUBJECTIVE: The patient just returned from radiation therapy. He is resting comfortably. He has no complaints. OBJECTIVE: Vital Signs: Temperature 97.9 degrees, blood pressure 127/77, heart rate 90, respirations 18, O2 saturations 100% on room air. General: This is a morbidly obese male, lying in bed in no acute distress. Heart: S1, S2 normal. Regular rate and rhythm. Lungs: Equal air entry bilaterally. No wheezing. Abdomen: Positive bowel sounds. Soft, obese, nontender, nondistended. Extremities: No edema, no cyanosis. Neurologic: The patient is alert and oriented x4. LABS: Sodium 140, potassium 3.4, BUN 6, creatinine 0.7, glucose 89. ASSESSMENT AND PLAN: 1. Suspected postobstructive pneumonia. The patient remains on antibiotic therapy and bronchodilator therapy. We will continue to monitor closely for improvement. 2. Large right pleural effusion. Aware. 3. Squamous cell lung cancer, status post chemotherapy. The patient underwent radiation therapy today. Further management as per Dr. Pereyra. 4. Atrial fibrillation. Continue on Cardizem. 5. Morbid obesity. Aware. 6. Deep vein thrombosis prophylaxis. Continue on Lovenox. cc: Cristina Maddox MD
[2019-02-13] MEDS: PRILOSEC PO SCH (06:18)
[2019-02-13 06:58] LABS: HEMOGLOBIN 12.6 g/dL (14.0-18.0); MCHC 31.5 g/dL (33-37); MCV 92.2 FL (81-99); MPV 10.2 FL (7.4-10.4); RBC 4.34 XMIL (4.7-6.1); WBC 5.7 X1000 (4.8-10.8)
--- NOTE | 2019-02-13 07:00 | Diag Imaging Result Doc PS360 ---
CHEST-1 VIEW - 02/13/2019 INDICATION: pneumonia/pleural effusion COMPARISON: 02/11/2019 FINDINGS: Stable right chest port in good position. Stable moderately large right basilar pleural effusion. The left lung remains clear. IMPRESSION: No change from prior. Electronically signed by Bryon Mccullough 02/13/2019 6:58 AM
[2019-02-13 07:24] LABS: CALCIUM 7.8 mg/dL (8.8-10.2); CREATININE 1.3 mg/dL (0.7-1.2); MAGNESIUM 2.1 mg/dL (1.5-2.7); POTASSIUM 3.9 mmol/L (3.5-5.1)
--- NOTE | 2019-02-13 08:28 | PROGRESS NOTE ---
DATE: 02/13/2019 SUBJECTIVE: Mr. Bishop was admitted on 02/09/2019 and came in with shortness of breath. Does not have a primary care physician. I think he is followed by Dr. Pereyra, and recently started on chemotherapy. He has a history of right lower lobe squamous cell cancer followed by Dr. Pereyra. Recently, he received 1 dose of chemotherapy about 3 days prior to presentation. He had a history of atrial fibrillation. Presented to the hospital with shortness of breath along with cough productive of whitish greenish sputum. He was admitted with pneumonia, postobstructive hospital- acquired, and was started empirically on Levaquin and Zosyn as well as vancomycin. He had a right pleural effusion, underlying right lower lobe squamous cell cancer. OBJECTIVE: On exam today,he is sitting up and he states he feels a little better. His breathing is a little better. Vital Signs: Temperature 97.7 degrees, pulse 67, respirations 20, and blood pressure 112/70. HEENT: Pupils are equal and round. Lungs: Clear in all lung kebede. Cardiovascular: Regular rhythm and rate without murmur or S3. Abdomen: Soft. Skin: Warm and dry. LABORATORY: Urine output is 1700 mL. Chest x-ray with no change from prior. Stable right chest port in good position and stable. Moderately enlarged right basilar pleural effusion. Left lung remains clear. ASSESSMENT AND PLAN: 1. Suspected postobstructive pneumonitis. Continue present antibiotics and bronchodilator treatment. He appears to be clinically improving. 2. Large right pleural effusion. 3. Squamous cell lung cancer status post first dose of chemotherapy. The patient has underwent radiation therapy yesterday. 4. Atrial fibrillation receiving Cardizem, rate is controlled. 5. Morbid obesity. Aware. 6. He has DVT prophylaxis. REVIEW OF ORDERS: He is on Lipitor 80 mg a day, diltiazem CD 120 mg a day, Levaquin 750 mg IV q.24 hours, Prilosec 40 mg a day, vancomycin 1500 mg IV q.12h, Zosyn 3.375 g IV q.6. He received some potassium supplement yesterday. LABORATORY DATA: Labs from this morning, white count 5700, hematocrit 40, and platelet count is 210,000. Electrolytes: Sodium 137, potassium 3.9, chloride 104, BUN 10, creatinine 1.3, and calcium 7.8. cc: Vaibhav Lynch MD
[2019-02-13] MEDS: LEVAQUIN 750 MG/D5W 750 MG/150 ML IVPB IV SCH (09:17)
[2019-02-13] MEDS: CARDIZEM CD PO SCH (09:17)
[2019-02-13] MEDS: ANUSOL-HC CREAM PR SCH (09:19)
[2019-02-13] MEDS: XOPENEX NEB INH SCH ×2 (09:40→15:18)
[2019-02-13] MEDS: MUCOMYST 20% INH SCH (09:40)
[2019-02-13 15:19] VITALS: BP 120/86
--- NOTE | 2019-02-13 17:40 | DISCHARGE SUMMARY ---
ADMISSION DATE: 02/09/2019 DISCHARGE DATE: He has no primary care physician followed by Dr. Pereyra. Mr. Bishop 58-year-old male history of right lower lobe squamous cell cancer followed by Dr. Pereyra recently received 1 dose of chemotherapy about 3 days prior to presentation. Also had a history of atrial fibrillation. Presented to the hospital because of shortness of breath along with cough productive whitish greenish sputum. Described having wheezing. Recently quit cigarette smoking. No hemoptysis. Presented to the hospital. X-ray of the chest showed right lower lobe possible postobstructive atelectasis and pneumonia, right pleural effusion. MEDICAL HISTORY AGAIN: 1. Right lower lobe pneumonia. 2. Recent diagnosis squamous cell cancer of the right lower lobe. 3. Paroxysmal atrial fibrillation. 4. Chronic tobacco use. 5. Suspected obstructive sleep apnea. ALLERGIES: No known drug allergies. ADMISSION DIAGNOSIS: 1. Pneumonia postobstructive. Patient was put on empiric Levaquin and Zosyn as well as vancomycin. 2. Right pleural effusion pulmonary was asked to see. 3. History of right lower lobe squamous cell cancer Dr. Pereyra following, started his 1st treatment just couple days before admission. 4. Paroxysmal atrial fibrillation rate seemed to be controlled. 5. Obstructive sleep apnea suspected. Patient had a chest x-ray on right lower lobe postobstructive atelectasis suspect pneumonia and right pleural effusion appreciated. CT of the chest severe worsening lung cancer, small right pleural effusion, complete collapse of the right lower lobe and middle lobes. Dr. Pereyra was consulted. I suspect his shortness of breath is caused by his lung collapse due to worsening lung cancer, pleural effusion, obstructive atelectasis, obtained radiation consult and continue supplemental O2, antibiotics and bronchodilators, pulmonary was asked to see Dr. Floyd, advanced lung cancer with progression on CAT scan, consolidation the right middle lobe and right lower lobe making it difficult to identify the tumor location extent. He does not have distal airway to allow stent placement, small right-sided pleural effusion, we continued antibiotics and wanted evaluation radiation evaluation for tumor the right lower lobe see if radiation could decrease the obstruction. Patient showed some progress. He met with radiation doctor and states the plan is to get to marking CT which start radiation as soon as possible. Patient clinically improved and Dr. Pereyra felt he could go home and the plan is to start radiation treatment. DISCHARGE MEDICATION: Lipitor 80 mg a day, Cardizem CD 120 mg a day, will keep him on Levaquin 750 mg p.o. daily for another 7 days, Prilosec 40 mg a day. Sputum cultures never grew specific organism. Blood cultures were unremarkable so he will follow up with Dr. Pereyra and prepare for radiation therapy, plan to go home today. cc: Vaibhav Lynch MD
== END 2019-02-13 17:54 | disposition home or self-care (01) | DRG 194 ==
LOC: ED 22:38 → SUATTDRO 02-09 03:42 → 3N 02-09 03:42
PROVIDERS: ATTEND Emergency Medicine